=== PATIENT | male | born 1960 | race Caucasian/White ===

== ENCOUNTER 2020-02-29 12:00 | Inpatient (IN) | payer MEDICARE, MEDICAID, SELFPAY ==
[2020-02-29] VITALS (29 sets, daily range): BP systolic 104–142; BP diastolic 78–107; PULSE 76–130; RESP 16–32; TEMP 36.3–36.5; O2SAT 85–98; BMI 25.4
--- NOTE | ~2020-02-29 | US_ITS ---
EXAMINATION: US renal BI EXAM DATE: 03/01/2020 11:45 INDICATION: TECHNIQUE: Multiple grayscale and Doppler images of the kidneys were obtained (by a technologist who performed the scan) and subsequently reviewed. There is no prior study for comparison. FINDINGS: Right kidney: There is normal contour and echogenicity. It measures 8.8 x 4.6 x 4.1 centimeters. Th ere are no focal renal lesions identified. There is no hydronephrosis. Left kidney: There is normal contour and echogenicity. It measures 9.3 x 4.5 x 4.7 centimeters. Ther e is a 1 cm cyst. There is no hydronephrosis. Bladder unremarkable. IMPRESSION: 1. Sonographically unremarkable kidneys. Reviewed, dictated and finalized at location A.
--- NOTE | ~2020-02-29 | XR_ITS ---
EXAMINATION: XR chest 1V portable EXAM DATE: 03/03/2020 05:47 INDICATION: CHF, pneumonia. TECHNIQUE: Portable AP frontal chest x-ray was obtained. Comparison is made to prior examination from 02/29/2020. FINDINGS: There is prominent soft tissue density in the left suprahilar region, could be dilated pulm onary artery but hilar lymphadenopathy is not excludable; recommend chest CT, with contrast if GFR al lows. There is moderate chronic hyperinflation. There is mild cardiomegaly. Pulmonary vascular congestion. Small pleural effusions, adjacent subsegmental atelectasis. No dense confluent consolidation. There i s no pneumothorax suspected. There are mild bony degenerative changes. IMPRESSION: 1. Persistent congestive changes, small pleural effusions. Adjacent subsegmental atelectasis. 2. Prominent left suprahilar soft tissue density, dilated pulmonary artery versus lymphadenopathy; r ecommend chest CT for further evaluation. 3. Pneumonia not excludable. Reviewed, dictated and finalized at location A. IMPRESSION: 1. Persistent congestive changes, small pleural effusions. Adjacent subsegment al atelectasis. 2. Prominent left suprahilar soft tissue density, dilated pulmonary artery [place] lymphadenopathy; recommend chest CT for further evaluation. 3. Pneumonia not excludable.
--- NOTE | ~2020-02-29 | US_ITS ---
EXAMINATION: US venous doppler [facility] DATE: 02/29/2020 15:09 INDICATION: Lower limb swelling TECHNIQUE: Grayscale ultrasound images without and with compression and Doppler ultrasound images of the bilateral lower extremity veins were obtained. COMPARISON: None. FINDINGS: Occlusive appearing noncompressible deep venous spondylosis in both of the paired posterior tibial ve ins at the right calf. The visualized portions of right common femoral vein, profunda (deep) femoral vein, femoral vein, popliteal vein, peroneal veins, gastrocnemius vein, lesser saphenous vein and gre ater saphenous vein outflow are patent. The visualized portions of left common femoral vein, profunda femoral vein, femoral vein, popliteal v ein, posterior tibial veins, peroneal veins, gastrocnemius vein, lesser saphenous vein and greater sa phenous vein outflow are patent. Incidentally noted is reflux of at least 3 second duration at the le ft popliteal and peroneal veins. IMPRESSION: 1. [id number] deep venous thrombosis in the paired posterior tibial veins at the right calf. No left-sided deep venous thrombosis. Dr. Rice discussed these findings with Dr. Wilson at 3:15 PM. 2. Reflux of at least 3 second duration at the left popliteal and peroneal veins. Reviewed, dictated and finalized at location A. IMPRESSION: 1. [id number]-[id number]-[id number] deep venous thrombosis in the paired posterior tibial veins at the right calf. No left-sided deep venous thrombosis. Dr. Rice discussed these findings with Dr. iWlson at 3:15 PM. 2. Reflux of at least 3 second duration at the left popliteal and peroneal vein s.
--- NOTE | ~2020-02-29 | CT_ITS ---
EXAMINATION: CT abdomen pelvis w con DATE: 02/29/2020 13:25 INDICATION: Abdominal pain TECHNIQUE: Computed tomography (CT) of the abdomen and pelvis was performed with 100 mL Omnipaque-350 intravenous contrast. Automated exposure control and iterative reconstruction technique were employe d. The dose-length product was 360.70 mGy-cm. COMPARISON: None FINDINGS: Small bilateral posteriorly layering pleural effusions with mild dependent atelectasis in the bilater al lower lobes and additional discoid atelectasis in the anterior right middle lobe. Mild smooth sept al line thickening at the lung bases consistent with mild pulmonary edema. No pneumonia. Calcified le ft lower lobe nodule consistent with old granulomatous disease. Mild cardiomegaly. Reflux of contrast into the superior vena cava extending caudally to the right common iliac vein consistent with tricus pid regurgitation. Atherosclerotic coronary artery calcification. No pericardial effusion. Small amou nt of ascites scattered throughout the abdomen and pelvis. Nonspecific mild wall thickening of the ga llbladder. Normal caliber common bile duct measuring 4 mm in maximal diameter with no evident obstruc ting stone or mass. Liver is unremarkable with no intrahepatic biliary ductal dilation. Splenic calci fications consistent with old granulomatous disease. Pancreas, bilateral adrenal glands and right kid doreen are normal. A couple small left renal cysts the larger measuring 11 mm in maximal diameter. No hy dronephrosis. No abnormal bowel wall thickening or obstruction. Normal appendix. Bladder is normal. N o abscess or free intraperitoneal gas. No pathologically enlarged abdominal or pelvic lymphadenopathy . There is calcified atherosclerosis of the aorta and many of the other arteries. Chronic mild anteri or wedging at T10-T12. Mild lumbar and lower thoracic spondylosis. IMPRESSION: 1. Congestive heart failure with cardiomegaly, mild pulmonary edema, small bilateral pleural effusion s and small amount of ascites. 2. Diffuse mild gallbladder wall thickening. This could be related to congestive heart failure, liver disease or acute cholecystitis. Correlate clinically for Ragsdale's and and if clinically indicated co uld consider either ultrasound or HIDA scan for further evaluation. Reviewed, dictated and finalized at location A. IMPRESSION: 1. Congestive heart failure with cardiomegaly, mild pulmonary edema, small bila teral pleural effusions and small amount of ascites. 2. Diffuse mild gallbladder wall thickening. This could be related to congestiv e heart failure, liver disease or acute cholecystitis. Correlate clinically for Ragsdale's and and if clinically indicated could consider either ultrasound or H DONNY scan for further evaluation.
--- NOTE | ~2020-02-29 | XR_ITS ---
EXAMINATION: XR chest 2V DATE: 02/29/2020 13:07 INDICATION: Leg swelling. TECHNIQUE: Frontal and lateral views of the chest were obtained. COMPARISON: Chest 2 views 08/01/2007 FINDINGS: There are small pleural effusions. Karel B-lines are noted, consistent with mild pulmonary edema. There are airspace opacities at the lung bases, likely atelectasis. No pneumothorax. The hear t size is normal. IMPRESSION: 1. Mild pulmonary edema. 2. Small pleural effusions. Reviewed, dictated and finalized at location B.
--- NOTE | ~2020-02-29 | US_ITS ---
EXAMINATION: US right upper quadrant DATE: 02/29/2020 15:08 INDICATION: Abdominal pain. TECHNIQUE: Multiple grayscale and Doppler ultrasound images of the abdomen were obtained. COMPARISON: CT abdomen and pelvis 02/29/2020 FINDINGS: The visualized portions of the head, body, and tail of the pancreas are normal. The liver d emonstrates surface nodularity, consistent with cirrhosis. There is normal flow in main portal vein. The gallbladder is normal in size. No gallstones. Gallbladder wall thickening is likely secondary to chronic liver disease. The common duct is normal and measures 4 mm. IMPRESSION: 1. Cirrhosis of the liver. Reviewed, dictated and finalized at location B. IMPRESSION: 1. Cirrhosis of the liver.
--- NOTE | 2020-02-29 12:29 | ECG_ITS ---
Measurements Intervals [place] Rate: 111 P: 75 PA: 156 QRS: -67 QRSD: 102 T: 88 QT: 328 QTc: 447 Interpretive Statements SINUS TACHYCARDIA INCOMPLETE RIGHT BUNDLE BRANCH BLOCK LEFT ANTERIOR FASCICULAR BLOCK BORDERLINE T WAVE ABNORMALITY- HIGH LATERAL LEADS BASELINE ARTIFACT- I, III, AVL ABNORMAL ECG Electronically Signed On 02-29-2020 15:13:50 CDT by Zurdo Louis D.O.
[2020-02-29 12:43] LABS: Basophils Absolute Auto 0.1 K/mm3 (0.0-0.1); Basophils Percent Auto 0.9 % (0.2-1.2); Eosinophils Absolute Auto 0.1 K/mm3 (0-0.3); Eosinophils Percent Auto 1.1 % (0-4.4); Hematocrit 52.1 % (42.0-52.0); Hemoglobin 17.3 g/dL (14.0-18.0); Immature Granulocyte Absolute 0.01 K/mm3 (0.00-0.031); Immature Granulocyte Percent A 0.1 % (0-0.5); Lymphocytes Absolute Auto 1.15 K/mm3 (0.9-3.2); Lymphocytes Percent Auto 16.4 % (18.3-44.2); Mean Corpuscular HGB Conc 33.2 g/dl (32-36); Mean Corpuscular Hemoglobin 31.9 pg (26-34); Mean Corpuscular Volume 95.9 fl (80-100); Mean Platelet Volume 11.9 fl (7.4-10.4); Monocytes Absolute Auto 0.8 K/mm3 (0.1-0.6); Monocytes Percent Auto 10.7 % (2.6-8.5); Neutrophils Percent Auto 70.8 % (45.5-73.1); Platelet Count Result 153 k/mm3 (150-375); Red Blood Count 5.43 M/mm3 (4.6-6.20); Red Cell Distribution Width 14.8 % (11.5-14.5)
--- NOTE | 2020-02-29 12:46 | ED.GENADULT ---
HPI - General Adult General Chief complaint: Unspecified Stated complaint: lower leg swelling/abd pain Time Seen by Provider: 02/29/20 12:15 Source: patient History of Present Illness HPI narrative: Patient is a 59 y/o male complaining of severe bilateral leg swelling for 1 to 1 1/2 weeks. He states that there is no alleviating or exacerbating factor. He also has some intermittent right sided abdominal pain, but has no abdominal pain at this time. He denies any leg pain, chest pain, SOB, vomiting or diarrhea. Related Data Home Medications Medication Instructions Recorded Confirmed No Home Medications 02/29/20 Allergies Allergy/AdvReac Type Severity Reaction Status Date / Time Penicillins Allergy Rash Verified 02/29/20 12:17 Review of Systems Constitutional: Constitutional: Denies chills, Denies fever(s), Denies headache(s) and Denies weakness Eyes: Eyes: Denies blurry vision ENT: Denies headache(s) and Denies neck pain Cardiovascular: Cardiovascular: Denies chest pain, Reports leg edema and Denies dyspnea Respiratory: Respiratory: Denies cough and Denies dyspnea Gastrointestinal: Gastrointestinal: Reports abdominal pain, Denies diarrhea, Denies nausea and Denies vomiting Genitourinary: Genitourinary: Denies hematuria and Denies dysuria Musculoskeletal: Musculoskeletal: Denies back pain and Denies neck pain Neurologic: Denies headache(s) and Denies weakness [facility] Social History Social History (Updated 02/29/20 @ 15:11 by Luda Rasmussen PA-C) Social History: Surrogate decision maker: Code status: Additional living arrangements comments: Lives in [place]. Additional occupation/education comments: Disabled. Exam Const: General: no acute distress and well developed Orientation/consciousness: oriented to person, oriented to place, oriented to time and patient oriented x3 HENMT: Head: normocephalic Ears: external ears normal General nose exam: Normal external nose present Eyes: General: appearance normal, both eyes and all related structures Conjunctivae: conjunctivae normal Neck: Neck: normal visual inspection and full ROM Chest: Chest palpation & inspection: normal inspection of the chest and no tenderness Resp: Effort & Inspection: normal respiratory effort Auscultation: clear to auscultation bilaterally Cardio: Rate: regular rate and tachycardic GI: GI Palp: No abdominal tenderness and Yes Soft to palpation Skin: General skin exam: normal color and turgor normal Neuro: General: oriented to person, oriented to place, oriented to time and patient oriented x3 Cognition (Neuro): normal cognition Extrem: General: full ROM and edema bilateral Psych: Appearance: grossly normal Mental Status: mental status grossly normal Affect: normal affect Course Consultations Consultation #1: Discussed with AVINASH Lares, who agrees to admit to Dr. Charles. Date: 02/29/20 Time: 14:21 Vital Signs Vital signs: Vital Signs Temperature 36.3 C L 02/29/20 12:04 Pulse Rate 120 H 02/29/20 12:04 Respiratory Rate 16 02/29/20 12:04 Blood Pressure 131/91 H 02/29/20 12:04 Pulse Oximetry 98 02/29/20 12:04 Temperature 36.3 C L 02/29/20 12:04 Pulse Rate 114 H 02/29/20 14:16 Respiratory Rate 17 02/29/20 14:16 Blood Pressure 131/102 H 02/29/20 14:15 Pulse Oximetry 97 02/29/20 14:16 Medical Decision Making Vital Signs Vital Signs: Vital Signs Temperature 36.3 C L 02/29/20 12:04 Pulse Rate 120 H 02/29/20 12:04 Respiratory Rate 16 02/29/20 12:04 Blood Pressure 131/91 H 02/29/20 12:04 Pulse Oximetry 98 02/29/20 12:04 Temperature 36.3 C L 02/29/20 12:04 Pulse Rate 114 H 02/29/20 14:16 Respiratory Rate 17 02/29/20 14:16 Blood Pressure 131/102 H 02/29/20 14:15 Pulse Oximetry 97 02/29/20 14:16 Lab Data Result diagrams: 02/29/20 12:36 02/29/20 12:36 Labs: Lab Results 02/29/20
[2020-02-29 12:54] LABS: Alanine Aminotransferase 39 U/L (4-50); Albumin Level 4.3 g/dL (3.5-5.1); Alkaline Phosphatase 169 U/L (38-126); Anion Gap 11 mmol/L (8-16); Aspartate Amino Transferase 49 U/L (17-59); Bilirubin,Total 2.3 mg/dL (0.2-1.3); Blood Urea Nitrogen 23 mg/dL (9-20); Calcium 9.4 mg/dL (8.4-10.2); Carbon Dioxide 25 mmol/L (22-30); Chloride 106 mmol/L (98-107); Estimated CRCL calculation 43 ml/min; Estimated Glomerular Filt Rate 52; Glucose 105 mg/dL (75-110); Potassium 4.3 mmol/L (3.4-5.0); Sodium 142 mmol/L (137-145)
[2020-02-29 12:57] LABS: INR 1.2; Prothrombin Time 14.8 Seconds (11.1-14.7)
[2020-02-29 12:59] LABS: Partial Thromboplastin Time 28.2 SECONDS (22.3-36.8)
[2020-02-29 13:02] LABS: NT Pro B Type Natriuretic Pept 12000 PG/ML (5-100)
[2020-02-29 14:00] LABS: Add Urine Microscopic? YES; Appearance Urine Clear (Clear); Bilirubin Urine Negative (Negative); Blood Urine Negative (Negative); Color Urine Yellow (Yellow); Glucose Urine UA Negative (Negative); Ketones Urine Negative (Negative); Leukocyte Esterase Ur Negative LEU/UL (Negative); Mucus Urine Rare /lpf; Nitrate Urine Negative (Negative); Protein Urine 2+ mg/dL (Negative); Specific Grav Ur 1.018 (1.001-1.035); WBC Urine 0-3 /hpf
[2020-02-29 14:11] LABS: Troponin I 0.031 ng/mL (0.000-0.034)
[2020-02-29] MEDS: FUROSEMIDE INJ 40 MG/4 ML VIAL IV PUSH (15:04)
--- NOTE | 2020-02-29 16:05 | PM.IMHP ---
H&P: HPI History of Present Illness Date/Time: 02/29/20 16:00 Chief complaint: Fatigue and lower extremity edema. Narrative: Francis Perez is a 59-year-old male with no known medical history (he has not seen a physician for decades) who presented to the emergency department earlier today with complaints of fatigue. He has mild intellectual disability and lives at home with his mother Charlene, who provides additional information with the patient's permission. Approximately two and a half weeks ago while outside mowing the lawn, he developed midsternal chest discomfort like somebody put a fist in there with drenching sweats, dizziness, and shortness of breath. The symptoms lasted for about 10 minutes before resolving, and they have not recurred. Since that time he has been very fatigued with a poor appetite. Mom has noticed lower extremity edema within the last week and a half in addition to the appearance of shortness of breath with day-to-day activity, which is unusual as he is typically quite active. At the time my evaluation he does not have any specific complaints. he denies fever, chills, sweats, orthopnea, PND, vomiting, abdominal pain, diarrhea, dysuria, and change in urine output. He has no known history of thyroid disease, coronary artery disease, congestive heart failure, sleep apnea, liver disease, or DVT. He is on no medications at home and does not use alcohol. Review of Systems Review of Systems: Narrative: Twelve systems were reviewed with pertinent positives and negatives as per HPI. Occasional, mild rhinorrhea. He rarely has a cough. No recent travel. No sick contacts or exposure to those positive for COVID-19 to his knowledge. His appetite has been poor but he has not had nausea or vomiting. No anosmia or dysgeusia. No known history of liver or gallbladder disease. No history of hepatitis or concerns for exposure to such. He denies jaundice and pruritus. Weight has remained stable. Except as documented, all other systems were reviewed and are negative. [facility] Past Medical History Medical History (Updated 02/29/20 @ 17:19 by Luda Rasmussen PA-C) Cirrhosis of liver (~02/2020) Congestive heart failure (~02/2020) Deep vein thrombosis (DVT) of distal vein of right lower extremity (~02/29/20) Intellectual disability Tobacco dependence Surgical History Surgical History (Updated 02/29/20 @ 17:05 by Luda Rasmussen PA-C) History of foot surgery History of left inguinal hernia repair Bilateral foot surgery for what sounds like bone spurs. Family History Family History (Updated 02/29/20 @ 17:06 by Luda Rasmussen PA-C) Mother Congestive heart failure Father Cirrhosis of liver Father was an alcoholic. Social History Social History (Updated 02/29/20 @ 17:07 by Luda Rasmussen PA-C) Social History: Surrogate decision maker: Charlene Grider, mother. Code status: Full code. Smoking packs per day: 1 Smoking cigarettes per day: 20.0 Years smoked: 50 Smoking pack-years: 50.00 Smoking status: Current every day smoker Additional smoking assessment comments: Patient began smoking at the age of 9. Alcohol intake: never Substance use: never Additional living arrangements comments: Lives in [place] with his mother and dog, a pug. He has a grown son. Additional occupation/education comments: Disabled due to intellectual disability. Spiritual care concerns: No Meds Home Medications and Allergies Home Medications Medication Instructions Recorded Confirmed Type No Home Medications 02/29/20 History Allergies Allergy/AdvReac Type Severity Reaction Status Date / Time Penicillins Allergy Rash Verified 02/29/20 12:17 Vital Signs Vital Signs - 24 hr 02/29/20 12:04 02/29/20 12:15 02/29/20 12:16 Temperature 97.3 F L Pulse Rate 120 H 130 H Respiratory Rate 16 17 Blood Pressure 131/91 H 142/107 H Pulse Oximetry 98 85 L
--- NOTE | 2020-02-29 16:06 | PC.NURSE ---
This patient, Francis Perez, was admitted to IMU Room 201-01. Patient/family oriented to hospital policies and general routines including ID bracelet, bed and alarms, visiting hours, pain management, procedures, bathroom and other care routines, personal items, smoking policy, room service/diet, and visiting hours. Valuables list has been completed. Information on how to activate the Rapid Response Team has been discussed. Patient/Family are encouraged to report perceived risks to care and to ask questions if they do not understand what they are told or what they should do.
[2020-02-29 16:08] LABS: Troponin I 0.026 ng/mL (0.000-0.034)
[2020-02-29 16:36] LABS: Hepatitis B Surface Antigen Negative (Negative)
[2020-02-29 16:41] LABS: HAV RESULT Negative (Negative); Hepatitis B Core IgM Result Negative (Negative)
[2020-02-29 16:53] LABS: Hepatitis C Virus Antibody Negative (Negative)
[2020-02-29] MEDS: ENOXAPARIN 80 MG/0.8 ML SYRINGE 70 MG SUB-Q (17:54)
[2020-02-29] MEDS: lisinopriL 10 MG TABLET PO (18:36)
[2020-02-29] MEDS: carvediloL 6.25 MG TABLET PO (18:37)
[2020-02-29 18:51] LABS: Creatine Kinase 164 U/L (55-170)
[2020-02-29 19:05] LABS: Troponin I 0.029 ng/mL (0.000-0.034)
[2020-03-01] VITALS (16 sets, daily range): BP systolic 97–111; BP diastolic 67–81; PULSE 67–108; RESP 18–20; TEMP 36.3–36.7; O2SAT 95–99
[2020-03-01] MEDS: ENOXAPARIN 80 MG/0.8 ML SYRINGE 70 MG SUB-Q ×2 (05:36→17:38)
--- NOTE | 2020-03-01 06:00 | ECHO_ITS ---
Patient Info Name: Francis Perez Age: 59 years : 1960 Gender: Male Ht: 65 in Wt: 153 lbs BSA: 1.80 m2 HR: 104 bpm BP: 111 / 79 mmHg Heart Rhythm: Tachycardia Technical Quality: Good Exam Date: 03/01/2020 9:14 AM Exam Location: [facility] Patient Status: Inpatient Admit Date: 02/29/2020 Staff Ordering Physician: Rahel Wilson MD Oil Expeller Operator: Nikko Curran RDCS Attending Provider: Andrey Charles MD Referring Physician: Steve CHILDERS; Exam Type: CA echo doppler color flow Study Info Indications I50.20 - Unspecified systolic (congestive) heart failure Complete two-dimensional, color flow and Doppler transthoracic echocardiogram is performed. History/Risk Factors CHF; edema, cirrhosis, cardiomegaly, edema. Summary 1. Mild LV enlargement, normal wall thickness; severe LV systolic dysfunction, ejection fraction 10-15%; grade 3/4 diastolic dysfunction with elevated left heart pressures. RV enlargement with hypokinesis. Normal mitral valve structure, trivial MR. Aortic valve appears mildly calcified, mild aortic stenosis, EMILY 1.8 cm2, mild aortic regurgitation. Moderate TR, moderate pulmonary hypertension, RVSP 58 mmHg, mild pulmonic regurgitation. Dilated IVC with less than 50% collapse consistent with elevated right atrial pressure. Left Ventricle Left ventricular chamber dimension is mildly enlarged. Left ventricular systolic function is severely reduced, estimated at <15%. There is no increased left ventricular wall thickness. Left ventricular septal wall motion is normal. The left ventricular diastolic function is grade IV diastolic dysfunction. E/e' 20.4 is elevated. Right Ventricle Right ventricular chamber dimension is mildly enlarged. Right ventricular systolic function is reduced. Left Atria Left atrial chamber dimension is normal. Right Atria Right atrial chamber dimension is normal. Aortic Valve There is no aortic valve sclerosis. There is mild aortic valve stenosis with a peak velocity of 113 cm/s, mean gradient of 3 mmHg, and aortic valve area of 1.8 cm2. There is mild aortic valve regurgitation. There is mild aortic valve calcification. Pulmonic Valve The pulmonic valve is normal. There is mild pulmonic regurgitation. Mitral Valve The mitral valve has normal leaflets. There is trace mitral valve regurgitation. Tricuspid Valve The tricuspid valve leaflets are normal. There is moderate tricuspid valve regurgitation. Moderate pulmonary hypertension, estimated pulmonary arterial systolic pressure is 58 mmHg. Pericardium/Pleural The pericardium appears normal. There is no pericardial effusion. Inferior Vena Cava Dilated inferior vena cava with <50% collapse upon inspiration consistent with elevated right atrial pressure, 15 mmHg. Aorta The aortic root size at the sinus of Valsalva is normal. The prox ascending aorta size is normal. Left Ventricular Outflow Tract Name Value Normal LVOT 2D LVOT Diameter 2.0 cm LVOT Doppler LVOT Peak Gradient 2 mmHg LVOT Mean Gradient 1 mmHg LVOT V
[2020-03-01 06:38] LABS: Hemoglobin 16.7 g/dL (14.0-18.0); Immature Platelet Fraction Pct 9.7 % (0.9-11.2); Mean Corpuscular HGB Conc 32.7 g/dl (32-36); Mean Corpuscular Hemoglobin 31.6 pg (26-34); Mean Corpuscular Volume 96.6 fl (80-100); Mean Platelet Volume 11.9 fl (7.4-10.4); Platelet Count Result 140 k/mm3 (150-375); Red Blood Count 5.28 M/mm3 (4.6-6.20); Red Cell Distribution Width 14.6 % (11.5-14.5); White Blood Count 6.3 K/mm3 (4.5-10.0)
[2020-03-01 06:54] LABS: Alanine Aminotransferase 37 U/L (4-50); Alkaline Phosphatase 146 U/L (38-126); Anion Gap 8 mmol/L (8-16); Aspartate Amino Transferase 43 U/L (17-59); Bilirubin,Total 1.9 mg/dL (0.2-1.3); Blood Urea Nitrogen 24 mg/dL (9-20); Carbon Dioxide 30 mmol/L (22-30); Chloride 103 mmol/L (98-107); Estimated CRCL calculation 41 ml/min; Estimated Glomerular Filt Rate 48; Glucose 97 mg/dL (75-110); Magnesium 1.6 mg/dL (1.6-2.3); Phosphorus 4.4 mg/dL (2.5-4.5); Potassium 4.2 mmol/L (3.4-5.0); Sodium 141 mmol/L (137-145)
[2020-03-01 07:03] LABS: INR 1.4; Prothrombin Time 16.4 Seconds (11.1-14.7)
--- NOTE | 2020-03-01 07:45 | PM.IMPN ---
Progress Note: A&P Assessment and Plan (1) New onset of congestive heart failure: Code(s): I50.9 - Heart failure, unspecified Status: Acute Assessment and Plan: Cautious diuresis with close monitoring of volume status and renal function, he was - 320 ml. Echocardiogram still pending. Given new onset congestive heart failure will consult cardiology. Still having significant peripheral edema and rales on exam. (2) Renal failure: Code(s): N19 - Unspecified kidney failure Status: Acute Assessment and Plan: He may very well have underlying chronic renal disease. Will obtain renal ultrasound pending, he also has proteinuria. (3) Deep vein thrombosis of distal vein of right lower extremity: Code(s): I82.4Z1 - Acute embolism and thrombosis of unspecified deep veins of right distal lower extremity Status: Acute Assessment and Plan: He has been started on Lovenox 1 milligram/kilogram. He is saturating above 95 % on room air has no chest pain and he is hemodynamically stable , given that the management is not going to change based on whether or not he has a PE I will not order a ct of the chest. Reflux of at least 3 seconds duration is was noted at the left popliteal and peroneal veins on venous Doppler ultrasound indicating chronic venous insufficiency. (4) Thickening of wall of gallbladder: Code(s): K82.8 - Other specified diseases of gallbladder Status: Acute Assessment and Plan: [place] to be due to chronic liver disease; he has no symptoms to suggest cholecystitis. (5) Elevated blood pressure reading: Code(s): R03.0 - Elevated blood-pressure reading, without diagnosis of hypertension Status: Acute Assessment and Plan: Blood pressure is stable now. Monitor blood pressures closely while diuresing. (6) Tachycardia: Code(s): R00.0 - Tachycardia, unspecified Status: Acute Assessment and Plan: His tachycardia is under better control. (7) Cirrhosis of liver: Onset Date: ~02/2020 Code(s): K74.60 - Unspecified cirrhosis of liver Status: Acute Assessment and Plan: Etiology of which is not clear at this time. He does not consume alcohol. His father had cirrhosis but was a heavy drinker. There is no mention of fatty liver on ultrasound. Hepatitis panel was negative. Given findings of congestive heart failure, I suppose it could be related to that. consult GI for further workup and to rule out less common causes. (8) Tobacco dependence: Code(s): F17.200 - Nicotine dependence, unspecified, uncomplicated Status: Acute Assessment and Plan: Smoking cessation is imperative and was discussed although I am not certain he is motivated. Subjective Date/time seen: He has no specific complains this morning, no chest pain or SOB. Still has significant edema and rhonchi, rales on exam. 03/01/20 07:45 Review of Systems Review of Systems: All systems reviewed & are unremarkable except as noted in HPI and below Exam Const: General: no acute distress Neck: Neck: supple and no JVD Resp: Effort & Inspection: normal respiratory effort Auscultation: rales, rhonchi and wheezes Cardio: Rate: regular rate Rhythm: regular rhythm Other: No bradycardia or tachycardia. GI: Auscultation: normal bowel sounds Skin: General skin exam: no rashes or lesions noted Neuro: Speech: normal speech Motor exam (neuro)
--- NOTE | 2020-03-01 08:23 | PM.CNCAR ---
Assessment and Plan Assessment and plan (1) CHF (congestive heart failure): Qualifiers: Heart failure chronicity: acute on chronic Heart failure type: unspecified Qualified Code(s): I50.9 - Heart failure, unspecified Code(s): I50.9 - Heart failure, unspecified Status: Acute Assessment and Plan: 59-year-old male with some level of intellectual disability, no known prior cardiac history admitted to the hospital with 7-10 day history of fatigue, and episode of chest discomfort associated with shortness of breath and diaphoresis, and lower extremity swelling. Patient is found to have right lower extremity DVT, and his imaging shows liver cirrhosis. His EKG shows sinus tachycardia, incomplete right bundle-branch block, left anterior fascicular block and nonspecific T-wave abnormality. Serial troponins are negative, anti proBNP is elevated. Check echocardiogram with Doppler to assess LV function and rule out major structural heart disease. Continue gentle diuresis with close monitoring of patient's renal function and electrolytes. (2) Deep vein thrombosis (DVT) of distal vein of right lower extremity: Onset Date: ~02/29/20 Qualifiers: Chronicity: acute Qualified Code(s): I82.4Z1 - Acute embolism and thrombosis of unspecified deep veins of right distal lower extremity Code(s): I82.4Z1 - Acute embolism and thrombosis of unspecified deep veins of right distal lower extremity Status: Acute Assessment and Plan: Anticoagulation with low-molecular weight heparin. Patient has renal insufficiency, therefore, CT scan of the chest could not be performed to rule out PE. Consider V/Q scan to check for PE. Management as per primary team. (3) Cirrhosis of liver: Onset Date: ~02/2020 Code(s): K74.60 - Unspecified cirrhosis of liver Status: Acute Assessment and Plan: Management as per primary team. Gastroenterology evaluation. It needs to be determined if patient's liver cirrhosis is a primary problem or secondary to underlying cardiac condition. (4) Tobacco abuse: Code(s): Z72.0 - Tobacco use Status: Acute Assessment and Plan: Smoking cessation counseling was done History of Present Illness History of Present Illness Consult date/time: 03/01/20 08:23 Date of consult: 03/01/2020 Reason for consult:CHF Requesting physician:FRANKLYN Rasmussen Chief complaint: Fatigue, leg swelling HPI: 59-year-old male with no known prior cardiac history . Patient is reported to have some level of intellectual disability. He lives with his mother. Patient was brought to [facility] on 02/29/2020 with complaints of generalized fatigue. He reports that about a week to ten days ago ago, he had some chest discomfort, although he is not able to describe his symptoms fully. He reports that his symptoms were associated sweats, dizziness, and shortness of breath. He has also noticed swelling in the bilateral lower extremities. He denies any recent trauma, denies any recent long distance travel. There is no known prior cardiac history. Patient's EKG on the personal evaluation showed sinus tachycardia, heart rate 101 beats per minute, incomplete right bundle-branch block, left anterior fascicular block, nonspecific T-wave abnormality. Serial troponins [place] [address]. Chest x-ray showed mild pulmonary vascular congestion and small pleural effusions. CT scan of the abdomen and pelvis showed Congestive heart failure with cardiomegaly, mild pulmonary edema, small bilateral pleural effusions and small amount of ascites; diffuse mild gallbladder wall thickening which could be related to congestive heart failure, liver disease or acute cholecystitis. venous duplex showed posterior tibial veins at the right calf; no DVT left leg. Ultrasound showed liver surface nodularity, consistent with cirrhosis. Patient has been
[2020-03-01] MEDS: FUROSEMIDE INJ 40 MG/4 ML VIAL 20 MG IV PUSH ×2 (08:46→17:37)
--- NOTE | 2020-03-01 15:15 | WPDGICN ---
Assessment and Plan Assessment and plan (1) Cirrhosis of liver: Onset Date: ~02/2020 Code(s): K74.60 - Unspecified cirrhosis of liver Status: Acute Assessment and Plan: incidental finding by imaging, also noted to be on heart failure and wonder if could have congestive hepatopathy will get blood work to rule out other chronic liver conditions (AIH, hemochromatosis, etc), could be idiopathic (2) CHF (congestive heart failure): Qualifiers: Heart failure chronicity: acute on chronic Heart failure type: unspecified Qualified Code(s): I50.9 - Heart failure, unspecified Code(s): I50.9 - Heart failure, unspecified Status: Acute Assessment and Plan: he is also being evaluated by cardiology and diuresed (3) Deep vein thrombosis (DVT) of distal vein of right lower extremity: Onset Date: ~02/29/20 Qualifiers: Chronicity: acute Qualified Code(s): I82.4Z1 - Acute embolism and thrombosis of unspecified deep veins of right distal lower extremity Code(s): I82.4Z1 - Acute embolism and thrombosis of unspecified deep veins of right distal lower extremity Status: Acute Assessment and Plan: started on blood thinners (4) Renal failure: Code(s): N19 - Unspecified kidney failure Status: Acute Assessment and Plan: mild elevated creatinine, by primary (5) Tobacco abuse: Code(s): Z72.0 - Tobacco use Status: Acute (6) Colon cancer screening: Code(s): Z12.11 - Encounter for screening for malignant neoplasm of colon Status: Acute Assessment and Plan: he says that had stool card 2-3 years ago and he does not want colonoscopy as outpatient, at least for now GI Consult Note Consult date/time: 03/01/20 15:15 Reason for consult: cirrhosis HPI: Francis Perez is a 59 year old male with no known medical history whoever has not seen a doctor for quite some time, smoker since 12 yo admitted with more shortness of breath on exertion and leg edema last several days, mother is at bedside and mentioned that he was unable to complete mowing the lawn this summer, history is obtained also from mother as patient has mild intellectual disability. Imaging showed that he has heart failure, also cirrhosis (unknown history of either), denies alcohol use. Also diagnosed with DVT in right leg and started on blood thinners. INR 1.2, creat 1.4, TB 2, transaminases 30-40, albumin 4.3, BN 12k. Also evaluated by cardiology. Hepatitis panel negative. He is comfortable now. Review of Systems Constitutional: Constitutional: Denies chills and Denies headache(s) Eyes: Eyes: Denies blurry vision ENT: Reports Normal hearing present, Denies headache(s) and Denies neck pain Cardiovascular: Cardiovascular: Reports leg edema and Denies dyspnea Respiratory: Respiratory: Reports dyspnea on exertion Gastrointestinal: Gastrointestinal: Reports no additional gastrointestinal complaints Genitourinary: Genitourinary: Denies dysuria Musculoskeletal: Musculoskeletal: Denies neck pain Integumentary/Breasts: Skin/Breast: Denies dry skin Neurologic: Reports Normal hearing present, Denies headache(s) and Denies weakness Psychiatric: Psychiatric: Denies anxiety Endocrine: Endocrine: Denies change in body appearance Hematologic/Lymphatic: Hematologic/Lymphatic: Denies easy bleeding Allergic/Immunologic: Allergic/Immunologic: Denies urticaria PMFSH Past Medical History Medical History Cirrhosis of liver (~02/2020) Congestive heart failure (~02/2020) Deep vein thrombosis (DVT) of distal vein of right lower extremity (~02/29/20) Intellectual disability Tobacco dependence Surgical History Surgical History History of foot surgery History of left inguinal hernia repair Bilateral foot surgery for what sounds like bone spurs. Family Histor
[2020-03-01] MEDS: MAGNESIUM SULF 1 GM/D5W 100 ML 1 GM/100 ML BAG IVPB (19:52)
[2020-03-01] MEDS: carvediloL 3.125 MG TABLET PO (19:52)
[2020-03-02] VITALS (17 sets, daily range): BP systolic 96–127; BP diastolic 67–95; PULSE 55–103; RESP 18–20; TEMP 36.4–36.8; O2SAT 95–99
[2020-03-02 05:00] LABS: Anion Gap 9 mmol/L (8-16); Blood Urea Nitrogen 34 mg/dL (9-20); Carbon Dioxide 30 mmol/L (22-30); Chloride 101 mmol/L (98-107); Estimated CRCL calculation 36 ml/min; Estimated Glomerular Filt Rate 41; Glucose 98 mg/dL (75-110); Potassium 4.3 mmol/L (3.4-5.0); Sodium 140 mmol/L (137-145)
[2020-03-02 05:24] LABS: Iron 86 ug/dL (49-181)
[2020-03-02 05:33] LABS: Percent Iron Saturation 21 % (20-50)
[2020-03-02] MEDS: ENOXAPARIN 80 MG/0.8 ML SYRINGE 70 MG SUB-Q (05:53)
[2020-03-02] MEDS: carvediloL 3.125 MG TABLET PO ×2 (09:16→20:16)
[2020-03-02] MEDS: FUROSEMIDE INJ 40 MG/4 ML VIAL 20 MG IV PUSH (09:17)
--- NOTE | 2020-03-02 11:13 | PM.IMPN ---
Progress Note: A&P Assessment and Plan (1) New onset of congestive heart failure: Code(s): I50.9 - Heart failure, unspecified Status: Acute Assessment and Plan: Echocardiogram showed combined diastolic and systolic dysfunction with an EF 10-15%, no wall motion abnormalities, mild aortic regurgitation and stenosis. On carvedilol already and tolerating it well, we will start him on low dose ISIDORO inhibitor. Still having significant peripheral edema but the exam has improved compared to yesterday's, decrease lasix to 20 mg daily given the worsening renal function and also due to the fact that his breathing has improved. (2) Renal failure: Code(s): N19 - Unspecified kidney failure Status: Acute Assessment and Plan: He may have cardiorenal syndrome , we will have nephrology to see him. Renal US unremarkable, he also has proteinuria. (3) Deep vein thrombosis of distal vein of right lower extremity: Code(s): I82.4Z1 - Acute embolism and thrombosis of unspecified deep veins of right distal lower extremity Status: Acute Assessment and Plan: He has been started on Lovenox 1 milligram/kilogram, we will switch him to eliquis. He is saturating above 95 % on room air has no chest pain and he is hemodynamically stable , given that the management is not going to change based on whether or not he has a PE I will not order a ct of the chest. Reflux of at least 3 seconds duration is was noted at the left popliteal and peroneal veins on venous Doppler ultrasound indicating chronic venous insufficiency. (4) Thickening of wall of gallbladder: Code(s): K82.8 - Other specified diseases of gallbladder Status: Acute Assessment and Plan: [place] to be due to chronic liver disease; he has no symptoms to suggest cholecystitis. (5) Elevated blood pressure reading: Code(s): R03.0 - Elevated blood-pressure reading, without diagnosis of hypertension Status: Acute Assessment and Plan: Blood pressure on the low side now probably due to low EF. Monitor blood pressures closely while diuresing. (6) Tachycardia: Code(s): R00.0 - Tachycardia, unspecified Status: Acute Assessment and Plan: His tachycardia is under better control. (7) Cirrhosis of liver: Onset Date: ~02/2020 Code(s): K74.60 - Unspecified cirrhosis of liver Status: Acute Assessment and Plan: Etiology of which is not clear at this time. Might be related to hepatic congestion given CHF. (8) Tobacco dependence: Code(s): F17.200 - Nicotine dependence, unspecified, uncomplicated Status: Acute Assessment and Plan: Smoking cessation is imperative and was discussed although I am not certain he is motivated. Subjective Date/time seen: Feeling better today, no chest pain or SOB. Anxious to go home but he does not have enough insight to understand his medical conditions. Family at the bedside was updated. 03/02/20 11:13 Review of Systems Review of Systems: All systems reviewed & are unremarkable except as noted in HPI and below Exam Const: General: comfortable and no acute distress Neck: Neck: supple and no JVD Resp: Effort & Inspection: normal respiratory effort Auscultation: crackles and rhonchi Cardio: Rate: regular rate Rhythm: regular rhythm Other: No bradycardia or tachycardia GI: Auscultation: normal bowel sounds Skin: General skin exam: no rashes o
--- NOTE | 2020-03-02 11:35 | PM.PNCARD ---
Progress Note: A&P Assessment and Plan (1) New onset of congestive heart failure: Code(s): I50.9 - Heart failure, unspecified Status: Acute Assessment and Plan: patient appears euvolemic. Agree with changing Lasix to p.o. -- would hold for now pending cath. (2) Cardiomyopathy: Code(s): I42.9 - Cardiomyopathy, unspecified Status: Acute Assessment and Plan: New cardiomyopathy, EF 10-15%. May be familial ( father had stent, both sisters have heart problems, nephew had sudden cardiac age 36 and other family members with heart disease ) discuss treatment of CHF/cardiomyopathy extensively with patient and mother, medication management, hope for improvement, risk of lethal arrhythmias and sudden cardiac . Recommended cardiac catheterization (Cors only to protect kidneys), which the patient is amenable to, tomorrow morning if renal fxn is stable Recommended LifeVest, reviewed in detail. Mother is skeptical that the patient will wear it but pt says he will. Both desire to give it a try if insurance will cover it. Patient is very eager for discharge. Hopefully can be discharged tomorrow afternoon. (3) Nonsustained ventricular tachycardia: Code(s): I47.2 - Ventricular tachycardia Status: Acute Assessment and Plan: PVCs and asymptomatic nonsustained ventricular tachycardia noted. Keep potassium greater than 4.0, monitor magnesium levels as well. Continue beta-gregorio, titrate as outpatient. Life vest (4) Chronic kidney disease: Code(s): N18.9 - Chronic kidney disease, unspecified Status: Acute Assessment and Plan: Hold diuretic for now, IV fluids for cath (5) Cirrhosis: Qualifiers: Ascites presence: unspecified Hepatic cirrhosis type: unspecified hepatic cirrhosis Qualified Code(s): K74.60 - Unspecified cirrhosis of liver Code(s): K74.60 - Unspecified cirrhosis of liver Status: Acute Assessment and Plan: (6) Tobacco dependence: Code(s): F17.200 - Nicotine dependence, unspecified, uncomplicated Status: Acute Assessment and Plan: (7) Deep vein thrombosis (DVT) of distal vein of right lower extremity: Onset Date: ~02/29/20 Qualifiers: Chronicity: acute Qualified Code(s): I82.4Z1 - Acute embolism and thrombosis of unspecified deep veins of right distal lower extremity Code(s): I82.4Z1 - Acute embolism and thrombosis of unspecified deep veins of right distal lower extremity Status: Acute Assessment and Plan: DVT below the knee, Keep on Lovenox until after cath, then switch to Eliquis Subjective Date/time seen: 03/02/20 11:35 Middle-aged male admitted with new onset of CHF, found to have a new cardiomyopathy EF 15%. Also found to have kidney disease, and cirrhosis. History of intellectual disability. Date of service: 03/02/2020 Patient feels well and is eager to go home to his family. Mother at the bedside. Denies shortness of breath, edema has resolved. Echo showed EF 10-15%, mild valve disease. Telemetry: PVCs, 21 beat run of ventricular tachycardia this morning asymptomatic. Apnea link = Normal Review of Systems Constitutional: Constitutional: Reports no additional constitutional complaints ENT: Denies epistaxis Cardiovascular: Cardiovascular: Denies chest pain, Denies pedal edema, Denies lightheadedness and Denies palpitations Respiratory: Respiratory: Denies dyspnea and Denies dyspnea on exertion Gastrointestinal: Gastrointestinal: Denies abdominal pain Genitourin
--- NOTE | 2020-03-02 12:43 | PM.CNNEP ---
Assessment and Plan Assessment and plan (1) Elevated serum creatinine: Code(s): R79.89 - Other specified abnormal findings of blood chemistry Status: Acute (2) Cardiomyopathy: Code(s): I42.9 - Cardiomyopathy, unspecified Status: Acute (3) CHF (congestive heart failure): Qualifiers: Heart failure chronicity: acute on chronic Heart failure type: unspecified Qualified Code(s): I50.9 - Heart failure, unspecified Code(s): I50.9 - Heart failure, unspecified Status: Acute (4) Cirrhosis of liver: Onset Date: ~02/2020 Code(s): K74.60 - Unspecified cirrhosis of liver Status: Acute (5) Renal failure: Code(s): N19 - Unspecified kidney failure Status: Acute Assessment and Plan: . Additional Plan Francis has an elevated creatinine that I suspect probably represents some degree of mild renal insufficiency. Although he has no history prior to this admission, the new findings of systolic and diastolic heart failure particularly with regard to his severe cardiomyopathy make him at risk for cardiorenal syndrome or at least chronic prerenal azotemia given depressed ejection fraction and worsening of his kidney function by the necessity of diuretic therapy. His liver issues may be secondary to his cardiomyopathy or possibly may be a primary issue in of itself which of course also would put him at risk for renal insufficiency particularly given that his liver physiology will predisposed him to decreased effective circulating volume also leading to chronic prerenal azotemia and also worsened by the necessity of diuretic therapy as well. I suppose there is it is also possible he could have some other intrinsic, infiltrative, or inflammatory disorders/disease that is affecting his kidney functions well with the added confounding variables of his cardiac and liver disease making things worse as well. Testing today has shown that his renal ultrasound is unremarkable but his urinalysis is somewhat significant for the fact he does have 2+ protein. For further evaluation of his renal dysfunction, I will check urine electrolytes, urine eosinophils, a random urine to protein creatinine ratio and also check a fairly extensive serological evaluation to ensure we are not missing any type of autoimmune disease or vasculitis that may be playing a role with regard to his renal dysfunction as well. These tests will take a few days to come back and it is not necessary for him to stay in the hospital as he can follow-up with me in the office for further management of his renal insufficiency/suspected chronic kidney disease once he is deemed stable for discharge. Cardiology plans do a cardiac catheterization tomorrow for definitive evaluation of his cardiomyopathy and I assume to assess whether not ischemia / ischemic disease is playing a role with regard to this issue / problem. He will also need a life vest on discharge given the severity of his cardiomyopathy as well. Long and extensive discussion with patient and his mother (> 20 minutes) regarding his multiple medical issues and problems including his kidney dysfunction as this time. I will continue follow with you while the patient remains hospitalized and make further recommendations during his hospital course. Thank you for allowing me to participate in the care this patient. History of Present Illness Reason for Consult Consult date: 03/02/20 Chief Complaint Chief complaint: Fatigue and lower extremity edema. History of Present Illness Narrative: The patient is a 59-year-old Caucasuin male with no significant medical history (but has not had blood work in the last few yeasr and has not seen a physician in decades) who presented to the emergency department with complaints of fatigue. Most of the information I have obtained is from discussion with his mother at bedside as the patient appears to have a mild intellectual disability
[2020-03-02] MEDS: lisinopriL 2.5 MG TABLET PO (12:54)
--- NOTE | 2020-03-02 14:46 | WPDGIPROGNO ---
Progress Note: A&P Assessment and Plan (1) Cirrhosis of liver: Onset Date: ~02/2020 Code(s): K74.60 - Unspecified cirrhosis of liver Status: Acute Assessment and Plan: I wonder if could be congestive hepatopathy from cardiomyopathy (EF 10-15%) but work up for other chronic liver disease in progress. he can follow up with me in office in 2-3 months to discuss findings. (2) CHF (congestive heart failure): Qualifiers: Heart failure chronicity: acute on chronic Heart failure type: unspecified Qualified Code(s): I50.9 - Heart failure, unspecified Code(s): I50.9 - Heart failure, unspecified Status: Acute (3) Cardiomyopathy: Code(s): I42.9 - Cardiomyopathy, unspecified Status: Acute Assessment and Plan: severe cardiomyopathy, cardiology is planning to do cardiac cath tomorrow (4) Chronic kidney disease: Code(s): N18.9 - Chronic kidney disease, unspecified Status: Acute Assessment and Plan: nephrology on board (5) Deep vein thrombosis (DVT) of distal vein of right lower extremity: Onset Date: ~02/29/20 Qualifiers: Chronicity: acute Qualified Code(s): I82.4Z1 - Acute embolism and thrombosis of unspecified deep veins of right distal lower extremity Code(s): I82.4Z1 - Acute embolism and thrombosis of unspecified deep veins of right distal lower extremity Status: Acute Assessment and Plan: on blood thinners Subjective Date/time seen: 03/02/20 14:46 Interval history: ECHO showed EF 10-15%, he is comfortable. Mother is at bedside Review of Systems Review of Systems: All systems reviewed & are unremarkable except as noted in HPI and below Exam Const: General: comfortable and no acute distress HENMT: Mouth: Yes moist mucous membranes Eyes: EOM: EOMs intact bilaterally Neck: Neck: supple Resp: Effort & Inspection: normal respiratory effort Auscultation: clear to auscultation bilaterally Cardio: Rate: regular rate Rhythm: regular rhythm GI: Inspection: non-distended GI Palp: Yes Soft to palpation and No Firmness to palpation present (GI) Auscultation: normal bowel sounds Skin: General skin exam: normal color and no rashes or lesions noted Neuro: Cognition (Neuro): abnormal cognition ( poor insight) Speech: normal speech Motor exam (neuro): Normal motor muscle tone present throughout Extrem: General: no pedal edema Objective Data Vital Signs Vital Signs: Vital Signs - 24 hr 03/01/20 16:00 03/01/20 18:00 03/01/20 19:11 Temperature 97.5 F L 97.3 F L Pulse Rate 107 H 108 H 102 H Respiratory Rate 18 18 Blood Pressure 110/81 106/76 Pulse Oximetry 96 96 03/01/20 19:43 03/01/20 19:52 03/01/20 20:00 Temperature 97.8 F Pulse Rate 106 H 105 H 105 H Respiratory Rate 20 20 Blood Pressure 110/78 Pulse Oximetry 97 97 03/01/20 22:00 03/02/20 00:00 03/02/20 02:00 Temperature 98.0 F Pulse Rate 97 94 96 Respiratory Rate 18 Blood Pressure 103/71 Pulse Oximetry 98 03/02/20 04:00 03/02/20 06:00 03/02/20 08:00 Temperature 97.6 F 97.9 F Pulse Rate 96 96 95 Respiratory Rate 18 20 Blood Pressure 104/77 127/95 H Pulse Oximetry 99 96 03/02/20 09:16 03/02/20 10:00 03/02/20 11:58 Temperature 98.2 F Pulse Rate 101 H 101 H 79 Respiratory Rate 18 Blood Pressure 96/72 L Pulse Oximetry 97 Intake/Output Intake/Output: Intake & Output 02/28/20 02/29/20 03/01/20 03/02/20 23:59 23:59 23:59 23:59 Intake Total 480 1170 560 Output Total 550 2300 1600 [facility] -[phone] Meds/Results Medications: Active Medications Generic Name Dose Route Start Last Admin Trade Name Freq PRN Reason Stop Dose Admin Apixaban 5 mg 03/09/20 21:00 Eliquis PO Q12HR ROVERTO Carvedilol 3.125 mg 03/01/20 19:05 03/02/20 09:16 Coreg PO 3.125 mg Q12HR ROVERTO Administration Sodium Chloride 500 mls @ 75 mls/hr 03/02/20 20:00 Normal Ray
--- NOTE | 2020-03-02 17:57 | PC.NURSE ---
Spoke with Ulises from [facility]. He is faxing a form over to [facility] that Dr. Craig will sign and fax back. Ulises informed plan is to discharge tomorrow after cardiac catheterization.
[2020-03-02] MEDS: SODIUM CHLORIDE 0.9% IV 500 ML 75 ML IV CONT (20:16)
[2020-03-03] VITALS (18 sets, daily range): BP systolic 101–135; BP diastolic 62–85; PULSE 86–103; RESP 16–18; TEMP 35.9–36.6; O2SAT 92–99
[2020-03-03 05:23] LABS: Anion Gap 8 mmol/L (8-16); Blood Urea Nitrogen 38 mg/dL (9-20); Calcium 8.4 mg/dL (8.4-10.2); Carbon Dioxide 28 mmol/L (22-30); Chloride 100 mmol/L (98-107); Estimated CRCL calculation 41 ml/min; Estimated Glomerular Filt Rate 48; Glucose 96 mg/dL (75-110); Magnesium 1.6 mg/dL (1.6-2.3); Potassium 4.1 mmol/L (3.4-5.0); Sodium 136 mmol/L (137-145)
--- NOTE | 2020-03-03 06:54 | P.CDI_ITS ---
CDI Query Clarification Request - CHF- new onset has been documented - Echocardiogram showed combined diastolic and systolic dysfunction with an EF 10-15%, no wall motion abnormalities, mild aortic regurgitation and stenosis documented - Coders cannot code type of CHF from echo results Please clarify type of new onset CHF: * Systolic * Diastolic * Combined systolic and diastolic * Unable to determine
[2020-03-03] MEDS: lisinopriL 2.5 MG TABLET PO (08:14)
[2020-03-03] MEDS: carvediloL 3.125 MG TABLET PO (08:14)
--- NOTE | 2020-03-03 08:49 | PM.IMPN ---
Progress Note: A&P Assessment and Plan (1) New onset of congestive heart failure: Code(s): I50.9 - Heart failure, unspecified Status: Acute Assessment and Plan: Combined Systolic and diastolic based on Echo results. Cardiology consulted and appreciate rec. Patient to have cath today; possible discharge from Cardiology standpoint pending cath per note. Echocardiogram showed combined diastolic and systolic dysfunction with an EF 10-15%, no wall motion abnormalities, mild aortic regurgitation and stenosis. On carvedilol already and tolerating it well Cont low dose lisinopril Still having significant peripheral edema but patient has apparent improvement in SOB and edema; will defer diuretics to Cardiology given plan for cath Monitor Patient to be discharged with LifeVest per Cardiology rec Await further rec from Cardiology (2) Renal failure: Code(s): N19 - Unspecified kidney failure Status: Acute Assessment and Plan: Cr 1.50 today; stable. He may have cardiorenal syndrome. Nephrology consulted and appreciate rec. Renal US unremarkable, he also has proteinuria. Monitor kidney function F/u with Nephrology as well Monitor Await rec from Nephrology (3) Deep vein thrombosis of distal vein of right lower extremity: Code(s): I82.4Z1 - Acute embolism and thrombosis of unspecified deep veins of right distal lower extremity Status: Acute Assessment and Plan: He had been started on Lovenox 1 milligram/kilogram, but then switched to eliquis; this has been held given Cath today per Cardiology rec. He is saturating above 95 % on room air has no chest pain and he is hemodynamically stable , given that the management is not going to change based on whether or not he has a PE no CTA of chest ordered. Reflux of at least 3 seconds duration is was noted at the left popliteal and peroneal veins on venous Doppler ultrasound indicating chronic venous insufficiency. Will defer resumption of Eliquis on Cardiology. If resuming tonight, start Eliquis 10 mg BID through morning of 03/10 (7 days), then switch to 5 mg BID thereafter Will need f/u with PCP (4) Thickening of wall of gallbladder: Code(s): K82.8 - Other specified diseases of gallbladder Status: Acute Assessment and Plan: [place] to be due to chronic liver disease; he has no symptoms to suggest cholecystitis. (5) Elevated blood pressure reading: Code(s): R03.0 - Elevated blood-pressure reading, without diagnosis of hypertension Status: Acute Assessment and Plan: Blood pressure on the low side now probably due to low EF. 130s sys this morning, however Monitor blood pressures closely while diuresing. Carvedilol and lisinopril also continues Cardiology following patient. (6) Tachycardia: Code(s): R00.0 - Tachycardia, unspecified Status: Acute Assessment and Plan: His tachycardia is under better control. (7) Cirrhosis of liver: Onset Date: ~02/2020 Code(s): K74.60 - Unspecified cirrhosis of liver Status: Acute Assessment and Plan: Etiology of which is not clear at this time. Dr. Grijalva following and appreciate recommendations. Might be related to hepatic congestion given CHF. F/u with GI in 2-3 months per rec (8) Tobacco dependence: Code(s): F17.200 - Nicotine dependence, unspecified, uncomplicated Status: Acute Assessment and Plan: Smoking cessation is imperative and was discussed again today, although he does not appear motivated
--- NOTE | 2020-03-03 10:08 | WPDMODSED ---
Moderate Sedation Note-Pt Data Patient Data Diagnosis: New CHF and cardiomyopathy, rule out coronary artery disease Present Complaint: shortness of breath and edema secondary to CHF Procedure to be performed/Plan: conscious sedation left heart catheterization Allergies Allergy/AdvReac Type Severity Reaction Status Date / Time Penicillins Allergy Rash Verified 02/29/20 12:17 Home Medications Medication Instructions Recorded Confirmed Type No Home Medications 02/29/20 02/29/20 History Current Medications: Active Medications Apixaban (Eliquis) 5 mg PO Q12HR [facility] Carvedilol (Coreg) 3.125 mg PO Q12HR [facility] Last Admin: 03/03/20 08:14 Dose: 3.125 mg Documented by: Sodium Chloride (Normal Saline Iv) 500 mls @ 75 mls/hr IV CONT .Q6H40M [facility] Last Infusion: 03/03/20 03:23 Dose: Infused Documented by: Lisinopril (Prinivil) 2.5 mg PO QAM [facility] Last Admin: 03/03/20 08:14 Dose: 2.5 mg Documented by: Sedation/Anesthesia: No previous sedation/anesthesia problems (including family history). PENDING SALE TO [facility] Past Medical History Medical History Cardiomyopathy Chronic kidney disease Cirrhosis of liver (~02/2020) Colon cancer screening Congestive heart failure (~02/2020) Deep vein thrombosis (DVT) of distal vein of right lower extremity (~02/29/20) Intellectual disability Nonsustained ventricular tachycardia Tobacco dependence Surgical History Surgical History History of foot surgery History of left inguinal hernia repair Bilateral foot surgery for what sounds like bone spurs. Family History Family History Mother Congestive heart failure Father Cirrhosis of liver Father was an alcoholic. Social History Social History Social History: Surrogate decision maker: Charlene Grider, mother. Code status: Full code. Smoking packs per day: 1 Smoking cigarettes per day: 20.0 Years smoked: 50 Smoking pack-years: 50.00 Smoking status: Current every day smoker Additional smoking assessment comments: Patient began smoking at the age of 9. Alcohol intake: never Substance use: never Additional living arrangements comments: Lives in [place] with his mother and dog, a pug. He has a grown son. Additional occupation/education comments: Disabled due to intellectual disability. Spiritual care concerns: No Mod Sed Physical Exam Physical Exam Pre Procedural Exam: Normal: Appearance, Eyes, Ears, Nose, Neck, Throat, Lungs, Heart Size, Heart Rate, Heart Rhythm, Neuro Exam, Abdomen, Genitalia ( intact pedal pulses), Extremities and Skin and Variation: Airway ( edentulous) Hours since solid foods: 12 Hours since liquid intake: 12 Internal Medicine - PN: Obj Da Vital Signs Vital Signs: Vital Signs - 24 hr 03/02/20 11:58 03/02/20 12:00 03/02/20 14:00 Temperature 98.2 F Pulse Rate 79 103 H 99 Respiratory Rate 18 Blood Pressure 96/72 L Pulse Oximetry 97 03/02/20 16:00 03/02/20 18:00 03/02/20 19:53 Temperature 97.7 F 97.9 F Pulse Rate 95 97 55 L Respiratory Rate 18 20 Blood Pressure 96/76 L 103/71 Pulse Oximetry 98 95 03/02/20 20:00 03/02/20 20:16 03/02/20 22:00 Temperature Pulse Rate 97 102 H 100 Respiratory Rate 20 Blood Pressure Pulse Oximetry 95 03/02/20 23:54 03/03/20 00:00 03/03/20 02:00 Temperature 97.7 F Pulse Rate 102 H 93 98 Respiratory Rate 18 18 Blood Pressure 104/67 Pulse Oximetry 99 99 03/03/20 04:00 03/03/20 06:00 03/03/20 08:00 Temperature 97.6 F 97.8 F Pulse Rate 94 93 94 Respiratory Rate 18 18 Blood Pressure 115/62 135/80 Pulse Oximetry 97 96 03/03/20 08:14 Temperature Pulse Rate 99 Respiratory Rate Blood Pressure Pulse Oximetry Intake/Output Intake/Outp
--- NOTE | 2020-03-03 11:05 | SUR.PHASEII ---
BEGIN PHASE II RECOVERY. RETURNS FROM [facility] W/ DR. LIMON TO SUPERINTENDENT OVERHEAD DISTRIBUTION 3 VIA STRETCHER. AWAKE AND ALERT ON ARRIVAL, DENIES CP OR SOB. R. GROIN PUNCTURE SITE CLOSED W/ ANGIOSEAL AND DRESSED W/ C/D/I GUAZE AND TEGADERM DRESSING. SITE SOFT, NONTENDER, NO BLEEDING OR HEMATOMA NOTED. REVIEWED ALL BEDREST ACTIVITY RESTRICTIONS W/ PT. VOICED UNDERSTANDING OF ALL. VSS. WILL MONITOR.
--- NOTE | 2020-03-03 11:07 | PM.OP ---
Procedure Note - Brief Procedure Note - Brief Date of procedure: 03/03/20 Pre-op diagnosis: Fatigue and lower extremity edema. Cardiomyopathy Post-op diagnosis: other ( nonischemic cardiomyopathy) Procedure performed: conscious sedation Selective coronary angiography Left heart catheterization Anesthesia: local ( with conscious sedation) Surgeon: Kelly Craig MD Findings: No coronary artery disease LV pressure: 98/24 mmHg Rec: OK for discharge from my point of view Add spironolactone 25 mg daily, continue Lasix 20 mg p.o. daily as well as lisinopril and carvedilol. BMP in 1 week Life Vest fitted before discharge Will arrange office FU for medication titration etc.. Patient's DVT is below the knee so the risk embolization is small. Okay to resume Eliquis on Saturday.
--- NOTE | 2020-03-03 11:11 | PM.PROC ---
Procedure Note - Detailed Date of procedure: 03/03/20 Pre-op diagnosis: Fatigue and lower extremity edema. cardiomyopathy, new onset Procedure performed: Conscious sedation Left heart catheterization Selective coronary angiography (no left ventriculogram was done to help reduce dye load secondary to CKD. ) Angiography of the right common femoral artery. Description of procedure: Site: Right femoral artery Catheters: 5 German arterial sheath, 5 German 4 cm right and left Ana catheters, 5 German pigtail catheter Conscious sedation: The patient has no known prior history of adverse affects of conscious sedation. Oropharynx was clear. The patient is deemed a good candidate for conscious sedation. Conscious sedation began at: 1044 Conscious sedation ended at: 11:00 a.m. Total conscious sedation time: 16 minutes Medications: Versed 25 mcg IV push The patient had continuous hemodynamic monitoring, and was also continuously monitored by: Harman Landeros RN The patient tolerated conscious sedation well. Detailed procedure: After informed consent the patient brought to the malthouse laborer and the right femoral area was prepped and draped in the usual fashion. After conscious sedation and local anesthesia the right femoral artery was punctured and cannulated with the arterial sheath. Selective Coronary angiography was performed with the coronary catheters in multiple projections. These were withdrawn. The pigtail catheter was advanced into the central circulation and left ventricle for pressure measurements. No left ventriculogram was done in order to reduce dye load. This was withdrawn. Later angiography the right common femoral was performed and the sheath was in suitable position for a vascular closure device. The arterial sheath was removed and hemostasis was obtained using Angio-Seal.. The patient tolerated the procedure well with no complications. Estimated blood loss was negligible. Anesthesia: local ( With conscious sedation) Surgeon: Kelly Craig MD Estimated blood loss (mL): 10 Drains: No Packing: No Pathology: none sent Complications: No immediate complications Condition: stable Disposition: observation Findings: Pressures: LV pressure 98/24 mm Hg, aortic pressure 104/ mm Hg Left coronary artery: The left main, Left anterior descending and circumflex vessels were widely patent. Right coronary artery: The right coronary artery was dominant and widely patent. Left ventriculogram: Not performed Femoral artery angiogram: Patent common femoral artery Rec: OK for discharge from my point of view Add spironolactone 25 mg daily, continue Lasix 20 mg p.o. daily as well as lisinopril and carvedilol. BMP in 1 week Life Vest fitted before discharge Will arrange office FU for medication titration etc.. Patient's DVT is below the knee so the risk embolization is small. Okay to resume Eliquis on Saturday.
--- NOTE | 2020-03-03 12:05 | SUR.PHASEII ---
REPORT CALLED TO DARIUS Weir RN IN IMU. PT. IS TO RETURN TO IMU 201.1. NO NEW CHANGES IN R. GROIN SITE OR STATUS.
--- NOTE | 2020-03-03 12:35 | SUR.PHASEII ---
END PHASE II RECOVERY. RETURNED TO IMU 201.1 VIA STRETCHER. OBSERVED Ayleen Herrera/ DARIUS DAWKINS IN ROOM. NO NEW CHANGES. PT. VOICES NO C/O.
--- NOTE | 2020-03-03 16:23 | PM.DS ---
DS: Admitting Diagnosis Admitting Diagnosis Admitting Diagnosis: Fatigue and lower extremity edema. DS: Discharge Diagnosis Discharge Diagnosis (1) New onset of congestive heart failure: Code(s): I50.9 - Heart failure, unspecified Status: Acute Assessment and Plan: Combined Systolic and diastolic based on Echo results. Cardiology consulted and appreciate rec. Patient to have cath today; possible discharge from Cardiology standpoint pending cath per note. Echocardiogram showed combined diastolic and systolic dysfunction with an EF 10-15%, no wall motion abnormalities, mild aortic regurgitation and stenosis. Cath today shows no CAD; okay for discharge from Cardiology standpoint On carvedilol already and tolerating it well Cont low dose lisinopril Still having significant peripheral edema but patient has apparent improvement in SOB and edema; will defer diuretics to Cardiology given plan for cath Monitor Patient to be discharged with LifeVest per Cardiology rec Discharge today; f/u with Cardiology (2) Renal failure: Code(s): N19 - Unspecified kidney failure Status: Acute Assessment and Plan: Cr 1.50 today; stable. He may have cardiorenal syndrome. Nephrology consulted and appreciate rec. Renal US unremarkable, he also has proteinuria. Monitor kidney function F/u with Nephrology as well (3) Deep vein thrombosis of distal vein of right lower extremity: Code(s): I82.4Z1 - Acute embolism and thrombosis of unspecified deep veins of right distal lower extremity Status: Acute Assessment and Plan: He had been started on Lovenox 1 milligram/kilogram, but then switched to eliquis; this has been held given Cath today per Cardiology rec. He is saturating above 95 % on room air has no chest pain and he is hemodynamically stable , given that the management is not going to change based on whether or not he has a PE no CTA of chest ordered. Reflux of at least 3 seconds duration is was noted at the left popliteal and peroneal veins on venous Doppler ultrasound indicating chronic venous insufficiency. Cardiology recommends resuming Eliquis on morning of 03/05 given risk for bleeding after cath. Will need f/u with PCP (4) Thickening of wall of gallbladder: Code(s): K82.8 - Other specified diseases of gallbladder Status: Acute Assessment and Plan: [place] to be due to chronic liver disease; he has no symptoms to suggest cholecystitis. (5) Elevated blood pressure reading: Code(s): R03.0 - Elevated blood-pressure reading, without diagnosis of hypertension Status: Acute Assessment and Plan: Blood pressure on the low side now probably due to low EF. 130s sys this morning, however Monitor blood pressures closely while diuresing. Carvedilol and lisinopril also continues Cardiology following patient. (6) Tachycardia: Code(s): R00.0 - Tachycardia, unspecified Status: Acute Assessment and Plan: His tachycardia is under better control. (7) Cirrhosis of liver: Onset Date: ~02/2020 Code(s): K74.60 - Unspecified cirrhosis of liver Status: Acute Assessment and Plan: Etiology of which is not clear at this time. Dr. Grijalva following and appreciate recommendations. Might be related to hepatic congestion given CHF. F/u with GI in 2-3 months per rec (8) Tobacco dependence: Code(s): F17.200 - Nicotine dependence, unspecified, uncomplicated Status: Acute Assessment and Plan: Smoking cessation is imperative and was
--- NOTE | 2020-03-03 18:39 | PC.NURSE ---
Patient was discharged at 1755 with his LifeVest on. All LifeVest education was provided to the patient by Mina Kinsey inventory representative. The patients mother was present for all LifeVest education and discharge education. The patient and his mother expressed understanding of education and repeated the importance of follow up appointments with the stacking machine operator, dry chain puller and GI specialist.
[2020-03-05 10:14] LABS: Ceruloplasmin 45 mg/dL (18-36)
[2020-03-06 10:12] LABS: Mitochondrial (M2) Ab (IgG) <=20.0 U (<=20.0)
== END 2020-03-03 17:55 | disposition home or self-care (01) | DRG 287 ==
LOC: ANHED 13:18 → ANHIMU 15:08
PROVIDERS: Hospitalist; Internal Medicine Cardiovascular Disease; Internal Medicine Gastroenterology; Physician Assistant; Admitting Provider Internal Medicine; Emergency Provider Emergency Medicine; Visit Provider Physician Assistant
PROC: 4A023N7 Measurement of Cardiac Sampling and Pressure, Left Heart, Percutaneous Approach (ICD-10-PCS; CPT 93452; principal; 2020-03-03 10:00)
PROC: 4A023N7 Measurement of Cardiac Sampling and Pressure, Left Heart, Percutaneous Approach (ICD-10-PCS; 2020-03-03 10:00)
DX: I50.41 Acute combined systolic (congestive) and diastolic (congestive) heart failure (principal); I82.4Z1 Acute embolism and thrombosis of unspecified deep veins of right distal lower extremity; I47.2 Ventricular tachycardia; I42.8 Other cardiomyopathies; K74.60 Unspecified cirrhosis of liver; I35.2 Nonrheumatic aortic (valve) stenosis with insufficiency; N18.9 Chronic kidney disease, unspecified; K82.8 Other specified diseases of gallbladder; R03.0 Elevated blood-pressure reading, without diagnosis of hypertension; F17.210 Nicotine dependence, cigarettes, uncomplicated; F79 Unspecified intellectual disabilities; Z82.49 Family history of ischemic heart disease and other diseases of the circulatory system
CPT/HCPCS: 36415; 71045; 71046; 74177; 76705; 76775; 80048; 80053; 80074; 81001; 82104; 82390; 82550; 82728; 83520; 83540; 83550; 83735; 83880; 84100; 84443; 84484; 85025; 85027; 85055; 85610; 85730; 86038; 93005; 93306; 93458; 93970; 94762; 96372; 96374; 96376; 99285; A9270; C1760; C1887; C1894; G0269; G0378; J1644; J1650; J1940; J2250; J3010; J3475; J7040; Q9967

== ENCOUNTER 2020-04-06 09:02 | Outpatient (CLI) | payer MEDICARE, MEDICAID, SELFPAY ==
[2020-04-06 09:51] LABS: Albumin Level 4.6 g/dL (3.5-5.1); Anion Gap 11 mmol/L (8-16); Blood Urea Nitrogen 29 mg/dL (9-20); Calcium 9.8 mg/dL (8.4-10.2); Carbon Dioxide 29 mmol/L (22-30); Chloride 103 mmol/L (98-107); Estimated Glomerular Filt Rate 52; Glucose 106 mg/dL (75-110); Phosphorus 4.1 mg/dL (2.5-4.5); Potassium 4.4 mmol/L (3.4-5.0); Sodium 143 mmol/L (137-145)
== END 2020-04-06 09:03 | disposition home or self-care (01) ==
PROVIDERS: Visit Provider Internal Medicine Nephrology
DX: N18.3 Chronic kidney disease, stage 3 (moderate) (principal); I50.22 Chronic systolic (congestive) heart failure
CPT/HCPCS: 36415; 80069

== ENCOUNTER 2020-05-18 11:33 | Outpatient (CLI) | payer MEDICARE, MEDICAID, SELFPAY ==
[2020-05-18 12:27] LABS: Albumin Level 4.4 g/dL (3.5-5.1); Anion Gap 6 mmol/L (8-16); Blood Urea Nitrogen 17 mg/dL (9-20); Calcium 9.4 mg/dL (8.4-10.2); Carbon Dioxide 31 mmol/L (22-30); Chloride 102 mmol/L (98-107); Estimated Glomerular Filt Rate > 60; Glucose 105 mg/dL (75-110); Phosphorus 3.8 mg/dL (2.5-4.5); Sodium 139 mmol/L (137-145)
[2020-05-18 12:31] LABS: Creatinine Urine 114.9 mg/dL; Total Protein Urine Random 22 mg/dL
[2020-05-18 13:17] LABS: Vitamin D 25 Hydroxy 31.1 ng/mL
[2020-05-18 14:03] LABS: Potassium 4.9 mmol/L (3.4-5.0)
[2020-05-18 14:19] LABS: Parathyroid Intact 59.6 pg/mL (7.5-53.5)
== END 2020-05-18 11:34 | disposition home or self-care (01) ==
PROVIDERS: Visit Provider Internal Medicine Nephrology
DX: N18.30 Chronic kidney disease, stage 3 unspecified (principal)
CPT/HCPCS: 36415; 80069; 82306; 82570; 83970; 84156

== ENCOUNTER 2020-07-23 01:14 | Outpatient (CLI) | payer MEDICARE, MEDICAID, SELFPAY ==
[2020-07-23 18:47] LABS: SARS-CoV-2 RNA PCR Negative
== END 2020-07-23 01:15 | disposition home or self-care (01) ==
LOC: ANHCOVIDDT 01:14
PROVIDERS: PCP Internal Medicine; Visit Provider Internal Medicine Cardiovascular Disease
DX: Z01.812 Encounter for preprocedural laboratory examination (principal); Z20.822 Contact with and (suspected) exposure to COVID-19
CPT/HCPCS: C9803; U0003; U0005

== ENCOUNTER 2020-08-08 10:12 | Outpatient (CLI) | payer MEDICARE, MEDICAID, SELFPAY ==
--- NOTE | 2020-08-08 14:30 | WPDPFTINT ---
PFT Interpretation This is a pulmonary function test with spirometry, plethysmography and diffusing capacity. The test was performed and results interpreted in accordance with the 2019 and 2005 ATS/ERS Task Force guidelines respectively using the Julian/Carlos reference equations. Findings: Spirometry: There is decreased maximal expiratory airflow at all lung volumes with a concave expiratory flow tracing. The inspiratory flow tracing is normal. The FVC is 2.82 L, 71% predicted. The FEV1 is 1.09 L, 38% predicted. The FEV1: FVC ratio is 39%. Plethysmography: The total lung capacity is 6.63 L, 116% predicted. Functional residual capacity is 4.45 L, 125% predicted. The residual volume is 3.80 L, 180% predicted. Plethysmography: The absolute diffusion capacity is 8.7, 50% predicted. The diffusing capacity corrected for alveolar volume is 1.82, 48% predicted. Impression: There is a severe obstructive abnormality. The increase in residual volume is consistent with air trapping from an obstructive abnormality. Hyperinflation is present is demonstrated by the increase in functional residual capacity and is consistent with an obstructive abnormality. The absolute diffusing capacity is moderately decreased and remains moderately decreased when corrected for alveolar volume. There are no prior studies for comparison
== END 2020-08-08 10:13 | disposition home or self-care (01) ==
PROVIDERS: PCP Internal Medicine; Visit Provider Physician Assistant
DX: F17.200 Nicotine dependence, unspecified, uncomplicated (principal); R94.2 Abnormal results of pulmonary function studies
CPT/HCPCS: 94375; 94726; 94729

== ENCOUNTER 2020-08-12 10:38 | Outpatient (CLI) | payer MEDICARE, MEDICAID, SELFPAY ==
--- NOTE | ~2020-08-12 | CT_ITS ---
EXAMINATION: CT lung screening DATE: 08/12/2020 11:58 INDICATION: Tobacco dependence TECHNIQUE: Computed tomography (CT) of the chest was performed without intravenous contrast. The dose -length product was 70.82 mGy-cm. Automated exposure control and iterative reconstruction technique w ere employed. COMPARISON: Chest dated 03/03/2020 FINDINGS: There is emphysema. There is a large left upper lobe mass measuring 7.7 x 8.7 x 6.3 cm, con sistent with bronchogenic carcinoma. Heart size is normal. No significant pleural or pericardial effusion. There are is a calcified nodule in the left lower lobe, consistent with chronic granulomatous disease. There is a 2 mm right upper l obe nodule near the apex. There is postobstructive atelectasis in the left upper lobe. No pneumothora x. There are calcified granulomas in the spleen. IMPRESSION: 1. Large complex left upper lobe mass extending to the hilum, compatible with bronchogenic carcinoma until proven otherwise. Recommend further evaluation with percutaneous biopsy or PET/CT examination. 2: Emphysema. Dr. Caruso discussed with Mya Vanegas, PA's nurse Usama Reynolds at 08/12/2020 16:10 FLOOR GRINDER. Reviewed, dictated and finalized at location A. R GRINDER IMPRESSION: 1. Large complex left upper lobe mass extending to the hilum, compatible with b ronchogenic carcinoma until proven otherwise. Recommend further evaluation with percutaneous biopsy or PET/CT examination. 2: Emphysema. Dr. Caruso discussed with Mya Vanegas, PA's nurse Usama Reynolds at 08/12/2020 16:10 FLOOR GRINDER.
== END 2020-08-12 10:39 | disposition home or self-care (01) ==
PROVIDERS: PCP Physician Assistant; Visit Provider Physician Assistant
DX: Z12.2 Encounter for screening for malignant neoplasm of respiratory organs (principal); Z87.891 Personal history of nicotine dependence; J43.9 Emphysema, unspecified
CPT/HCPCS: 71271

== ENCOUNTER → 2020-08-13 00:29 | Outpatient (CLI) | payer MEDICARE, MEDICAID, SELFPAY ==
[2020-08-13 20:38] LABS: SARS-CoV-2 RNA PCR Negative
== END ==
PROVIDERS: PCP Physician Assistant; Visit Provider Internal Medicine Cardiovascular Disease
DX: Z01.812 Encounter for preprocedural laboratory examination (principal); Z20.822 Contact with and (suspected) exposure to COVID-19
CPT/HCPCS: C9803; U0003; U0005

== ENCOUNTER 2020-08-16 01:48 | Day surgery (SDC) | payer MEDICARE, MEDICAID, SELFPAY ==
[2020-08-15 13:27] VITALS: BMI 20.5
[2020-08-16] VITALS (12 sets, daily range): BP systolic 103–124; BP diastolic 62–94; PULSE 100–149; RESP 15–21; TEMP 36.4–36.7; O2SAT 94–98; BMI 20.1
--- NOTE | ~2020-08-16 | XR_ITS ---
XR chest 1V portable 08/16/2020 14:13 Indication: Pacemaker insertion Procedure: AP portable chest Comparison: Chest x-ray dated 03/03/[address] dated 08/12/2020 Findings: There is a left upper lobe mass, concerning for bronchogenic carcinoma with partial collaps e of the left upper lobe. Interval placement of pacemaker, lead tip in the right ventricle. Heart siz e normal. The lungs are hyperinflated which is consistent with, but not diagnostic of chronic obstruc tive pulmonary disease. No significant effusion or pneumothorax. Impression: 1: Left upper lobe mass, concerning for bronchogenic carcinoma with partial collapse of the left uppe r lobe. Reviewed, dictated and finalized at location B. [facility] CLERK Impression: 1: Left upper lobe mass, concerning for bronchogenic carcinoma with partial col lapse of the left upper lobe.
--- NOTE | ~2020-08-16 | XR_ITS ---
EXAMINATION: XR chest 2V DATE: 08/17/2020 07:27 INDICATION: Pacer placement. TECHNIQUE: Frontal and lateral views of the chest were obtained. COMPARISON: Chest single view 08/16/2020, chest CT 08/12/2020 FINDINGS: The lungs are hyperexpanded with lucencies, consistent with emphysema. There is a left yannick r mass with partial collapse of left lung upper lobe. No pleural effusion or pneumothorax. The heart size is normal. There is a right chest pacer/defibrillator with lead in right ventricle. IMPRESSION: 1. Left hilar mass with partial collapse of left upper lobe, consistent with primary bronchogenic car cinoma. Bronchoscopy is recommended. 2. Emphysema. Reviewed, dictated and finalized at location A. [facility] IMPRESSION: 1. Left hilar mass with partial collapse of left upper lobe, consistent with pr imary bronchogenic carcinoma. Bronchoscopy is recommended. 2. Emphysema.
[2020-08-16 11:19] LABS: Basophils Absolute Auto 0.1 K/mm3 (0.0-0.1); Basophils Percent Auto 0.7 % (0.2-1.2); Eosinophils Absolute Auto 0.1 K/mm3 (0-0.3); Eosinophils Percent Auto 1.7 % (0-4.4); Hematocrit 50.9 % (42.0-52.0); Hemoglobin 17.4 g/dL (14.0-18.0); Immature Granulocyte Absolute 0.02 K/mm3 (0.00-0.031); Immature Granulocyte Percent A 0.2 % (0-0.5); Lymphocytes Absolute Auto 1.58 K/mm3 (0.9-3.2); Mean Corpuscular HGB Conc 34.2 g/dl (32-36); Mean Corpuscular Volume 96.4 fl (80-100); Mean Platelet Volume 11.2 fl (7.4-10.4); Monocytes Absolute Auto 0.8 K/mm3 (0.1-0.6); Neutrophils Absolute Auto 5.7 K/mm3 (1.3-6.7); Neutrophils Percent Auto 68.4 % (45.5-73.1); Platelet Count Result 177 k/mm3 (150-375); Red Blood Count 5.28 M/mm3 (4.6-6.20); White Blood Count 8.3 K/mm3 (4.5-10.0)
[2020-08-16 11:30] LABS: Prothrombin Time 13.4 Seconds (11.1-14.7)
[2020-08-16 11:32] LABS: Anion Gap 8 mmol/L (8-16); Blood Urea Nitrogen 18 mg/dL (9-20); Calcium 10.1 mg/dL (8.4-10.2); Carbon Dioxide 30 mmol/L (22-30); Chloride 104 mmol/L (98-107); Estimated CRCL calculation 39 ml/min; Estimated Glomerular Filt Rate 52; Glucose 100 mg/dL (75-110); Potassium 4.6 mmol/L (3.4-5.0); Sodium 142 mmol/L (137-145)
--- NOTE | 2020-08-16 11:50 | WPDHPUPDATE1 ---
History and Physical Update Update Date/Time: 08/16/20 11:50 History and Physical has been reviewed, including an updated exam of the patient. Since the last visit, the patient was diagnosed as having a left hilar mass by chest x-ray and CT scan which is thought to be cancer. Workup is in progress. I explained to the patient and mother that we could delay the ICD implant further while they are getting an evaluation of this for prognosis but they would like to proceed with ICD implant. In addition, I have planned a left-sided implant but wonder if the patient may need radiation therapy which could impair the function of than ICD as it looks like the ICD would be very close to the mass. In that case we will need to do a right-sided implant, and there may be a decrement in the effectiveness of the ICD. Patient and mother still would like to proceed. He is very tachycardic today, and the mother says he is very anxious. I had him hold his cardiac medications starting last pm, including his carvedilol, as his systolic blood pressure runs in the 90s and I wanted to some ?room? in his BP to provide conscious sedation. Risks, benefits, and alternatives have been discussed and questions answered. Patient agrees to proceed with procedure.
--- NOTE | 2020-08-16 11:59 | WPDMODSED ---
Moderate Sedation Note-Pt Data Patient Data Diagnosis: Nonischemic cardiomyopathy, at risk for sudden cardiac Present Complaint: Same as above Procedure to be performed/Plan: Conscious sedation Venogram Implantation of a single lead ICD Possible DeFib testing Allergies Allergy/AdvReac Type Severity Reaction Status Date / Time Penicillins Allergy Rash Verified 08/15/20 13:18 Home Medications Medication Instructions Recorded Confirmed Type apixaban [Eliquis] 5 mg PO BID #60 tablet 03/03/20 08/15/20 Rx furosemide 20 mg PO DAILY #30 tablet 03/03/20 08/15/20 Rx lisinopril 2.5 mg PO QAM 30 Days #30 tablet 03/03/20 08/15/20 Rx spironolactone 25 mg PO DAILY #30 tablet 03/03/20 08/15/20 Rx carvedilol [Coreg] 6.25 mg PO Q12HR 08/15/20 08/15/20 History sacubitril-valsartan [Entresto] 24 - 26 tablet PO BID 08/15/20 08/15/20 History Current Medications: Active Medications Sodium Chloride (Normal Saline Iv) 500 mls @ 100 mls/hr IV CONT .Q5H ROVERTO Eliquis has been held for 3 days, other meds held since last night Sedation/Anesthesia: No previous sedation/anesthesia problems (including family history). [facility] Past Medical History Medical History (Updated 08/16/20 @ 12:02 by Kelly Craig MD) Cardiomyopathy Chronic kidney disease Cirrhosis of liver (~02/2020) Colon cancer screening Congestive heart failure (~02/2020) Deep vein thrombosis (DVT) of distal vein of right lower extremity (~02/29/20) Intellectual disability Lung mass Nonsustained ventricular tachycardia Tobacco dependence Surgical History Surgical History History of foot surgery History of left inguinal hernia repair Bilateral foot surgery for what sounds like bone spurs. Family History Family History Mother Congestive heart failure Father Cirrhosis of liver Father was an alcoholic. Social History Social History Social History: Surrogate decision maker: Charlene Grider, mother. Code status: Full code. Smoking packs per day: 1 Smoking cigarettes per day: 20.0 Years smoked: 50 Smoking pack-years: 50.00 Smoking status: Current every day smoker Additional smoking assessment comments: Patient began smoking at the age of 9. Alcohol intake: never Substance use: never Additional living arrangements comments: Lives in [place] with his mother and dog, a pug. He has a grown son. Additional occupation/education comments: Disabled due to intellectual disability. Spiritual care concerns: No Mod Sed Physical Exam Physical Exam Pre Procedural Exam: Normal: Appearance (Middle-aged man a slight build, no distress, mentally challenged), Eyes, Ears, Nose, Neck, Airway, Lungs, Heart Size, Heart Rate, Neuro Exam, Abdomen, Extremities and Skin and Variation: Throat (Edentulous) and Heart Rhythm (Tachycardic) Hours since solid foods: 12 Hours since liquid intake: 12 Internal Medicine - PN: Obj Da Vital Signs Vital Signs: Vital Signs - 24 hr 08/16/20 11:00 Temperature 97.6 F Pulse Rate 146 H Respiratory Rate 17 Blood Pressure 124/87 Pulse Oximetry 97 Meds/Results Medications: Active Medications Generic Name Dose Route Start Last Admin Trade Name Freq PRN Reason Stop Dose Admin Sodium Chloride 500 mls @ 100 mls/hr 08/16/20 10:30 Normal Saline Iv IV CONT .Q5H ROVERTO Labs CBC & Chem 7: 08/16/20 10:57 08/16/20 10:57 Labs: Laboratory Results - last 24 hr 08/16/20 08/16/20 08/16/20 10:57 10:57 10:57 WBC 8.3 RBC 5.28 Hgb 17.4 Hct 50.9 MCV 96.4 MCH 33.0 MCHC 34.2 RDW 13.0 Plt Count 177 MPV 11.2 H Immature Gran % (Auto) 0.2 Neut % (Auto) 68.4 Lymph % (Auto) 19.0 [place] % (Auto) 10.0 H Eos % (Auto) 1.7 Baso % (Auto) 0.7
--- NOTE | 2020-08-16 13:37 | PM.OP ---
Procedure Note - Brief Procedure Note - Brief Date of procedure: 08/16/20 Pre-op diagnosis: Non ischemic Cardiomyopathy At risk for sudden cardiac Post-op diagnosis: same Procedure performed: Conscious sedation Venogram Implantation of a single lead Med[employer]onic ICD Description of procedure: uneventful ICD implant Anesthesia: local ( with conscious sedation) Surgeon: Kelly Craig MD Estimated blood loss (mL): 10 Complications: No immediate complications Condition: stable Disposition: observation
--- NOTE | 2020-08-16 13:39 | PM.PROC ---
Procedure Note - Detailed Date of procedure: 08/17/20 Pre-op diagnosis: Non ischemic Cardiomyopathy At risk for sudden cardiac Post-op diagnosis: same Procedure performed: Cconscious sedation Venogram Implantation of a single lead transvenous Medtronic ICD Description of procedure: PROCEDURE PERFORMED: Conscious sedation Venogram Placement of a permanent dual-chamber pacemaker SITE: Right prepectoral area MEDICATIONS GIVEN IN INDUSTRIAL DESIGNER: Vancomycin 1 g IV Normal saline 250 cc bolus for low blood pressure CONSCIOUS SEDATION: Assessment: The patient has no history of anesthesia problems. The patient's oropharynx is clear. The patient was deemed to be a good candidate for conscious sedation. The patient had continuous hemodynamic monitoring during the procedure. Start time: 1244 Completion time: 1334 Total conscious sedation time: 50 minutes Medications: Versed 1 mg, fentanyl 25 mcg IV push Trained observer: Lyla Hwang RN Outcome: The patient tolerated the procedure well with no complications. PROCEDURE: The patient unfortunately was recently found to have a left upper lobe and left hilar mass which is being evaluated. He and his mother did not want to delay the ICD implant pending evaluation and treatment of this mass. With that in mind, I changed my approach from a left-sided to a right-sided implant, thinking that he may need radiation therapy of the left upper lobe which would impair the function of a left-sided ICD. I had asked him to hold his carvedilol and other cardiac medications and I prior to allow enough blood pressure for conscious sedation, and he was noted to be very tachycardic with heart rates 120s-130s, sinus tachycardia. After informed consent , the patient was brought to the labour market economist and the right prepectoral area was prepped and draped in usual fashion . The patient received preop antibiotic with vancomycin and conscious sedation . After the initial Versed 1 mg, the patient's blood pressure decreased to 80 mm Hg ( normal for him is 90 mm Hg) and he was given 250 cc of saline with good results. The right prepectoral area was anesthetized with lidocaine . A venogram was performed showing the course of the right subclavian vein,which was patent. Next a skin incision was made and carried down to the prepectoral fascia. Hemostasis was obtained using electrocautery . The pacer pocket was formed. The subclavian vein was easily accessed with the micropuncture technique, and a J-tip guide wire was passed into the inferior vena cava under fluoroscopic guidance . The needle was withdrawn . The wire was drawn into the pacing pocket. A 9 [place] safety sheath was passed over the wire, the wire withdrawn, and the right ventricular lead was passed into the inferior vena cava under fluoroscopic guidance . The lead was then prolapsed through the tricuspid valve and advanced into the right ventricular apex. When suitable sensing and pacing thresholds were obtained, it was screwed into place. No extra cardiac stimulation was obtained using 10 volts. The sheath was withdrawn. The lead was secured to the prepectoral fascia using 2-0 silk over it's sleeve. The pocket was cleansed with antibiotic containing solution . The pulse generator was introduced into the operative field, and both lead was secured into the generator. A gentle tug showed the lead was securely fastened. The device was introduced into the pocket. No Defib threshold testing was done per guidelines; he has such poor LV function I was concerned that he may not tolerate DFT well. The subcutaneous tissues were closed in a double layer fashion with interrupted sutures, using 2-0 Vicryl suture , and the skin was closed in a continuous fashion using 4-0 Vicryl suture in a continuous fashion. The area was cleansed, and an Aquacel dressing was applied . The patient tolerated the procedure well with no complications. PACEMAKER INFORMATION: P
--- NOTE | 2020-08-16 13:52 | ECG_ITS ---
Measurements Intervals [place] Rate: 129 P: 83 NM: 158 QRS: -39 QRSD: 94 T: 70 QT: 289 QTc: 425 Interpretive Statements SINUS TACHYCARDIA LEFT AXIS DEVIATION INCOMPLETE RIGHT BUNDLE BRANCH BLOCK BORDERLINE R WAVE PROGRESSION, ANTERIOR LEADS BASELINE ARTIFACT- I, III ABNORMAL ECG Electronically Signed On 08-16-2020 14:34:53 INTERVENTIONAL RADIOLOGY TECH by Zurdo Louis D.O.
--- NOTE | 2020-08-16 15:37 | ADMGEN ---
This patient, Francis Perez, was admitted to [facility]. Patient/family oriented to hospital policies and general routines including ID bracelet, bed and alarms, visiting hours, pain management, procedures, bathroom and other care routines, personal items, smoking policy, room service/diet, and visiting hours. Information on how to activate the Rapid Response Team has been discussed. Patient/Family are encouraged to report perceived risks to care and to ask questions if they do not understand what they are told or what they should do.
--- NOTE | 2020-08-16 18:34 | PC.NURSE ---
Report given to Charlotte RN in IMU patient will transfer to IMU room 209 at shift change.
--- NOTE | 2020-08-16 19:22 | PC.NURSE ---
Patient, mother and belongings all transferred to IMU room 209.
[2020-08-16] MEDS: carvediloL 6.25 MG TABLET PO (21:32)
[2020-08-16] MEDS: SACUBITRIL/VALSARTAN 24-26 MG TABLET 1 TAB PO (21:32)
--- NOTE | 2020-08-16 21:51 | PC.NURSE ---
[address]
[2020-08-17] VITALS (7 sets, daily range): BP systolic 100–104; BP diastolic 71–76; PULSE 84–110; RESP 16–20; TEMP 36.3–36.6; O2SAT 92–97
[2020-08-17] MEDS: lisinopriL 2.5 MG TABLET PO (08:24)
[2020-08-17] MEDS: SACUBITRIL/VALSARTAN 24-26 MG TABLET 1 TAB PO (08:24)
[2020-08-17] MEDS: carvediloL 6.25 MG TABLET PO (08:24)
[2020-08-17] MEDS: SPIRONOLACTONE 25 MG TABLET PO (08:24)
[2020-08-17] MEDS: FUROSEMIDE 20 MG TABLET PO (08:25)
--- NOTE | 2020-08-17 09:50 | PM.DS ---
DS: Admitting Diagnosis Admitting Diagnosis Admitting Diagnosis: Nonischemic cardiomyopathy, at risk for sudden cardiac DS: Discharge Diagnosis Discharge Diagnosis (1) ICD (implantable cardioverter-defibrillator) in place: Code(s): Z95.810 - Presence of automatic (implantable) cardiac defibrillator Status: Acute DS: Summary Hospital Course Hospital Course: Mr. Perez has a nonischemic cardiomyopathy followed by Dr. Rosen. Despite several months of optimal medical therapy his ejection fraction was still for 10-15%. He is at risk of sudden cardiac and was admitted for elective implantation of a ICD. On arrival the patient's mother (he has a developmental delay) informed me that he was found to have a lung mass on the left side recently by chest x-ray and CT scan which was thought to be a cancer although he has not had a biopsy yet. We had a discussion as to perhaps delaying ICD implant until after more was known about the patient's prognosis but he and his mother wanted to proceed with the ICD implant. With that in mind, thinking that he may need high-dose radiation therapy to the left chest, I elected to implant the ICD on the right side. The patient had uneventful implantation of a right-sided single lead Medtronic ICD yesterday. No Defib threshold testing was done per guidelines; he has such poor LV function I was concerned that he may not tolerate DFT well. Follow-up chest x-rays and interrogation showed normal function, normal position and no pneumothorax. He does have a large mass of the left hilum and left upper lobe. Of note, I had held the patient's cardiac medications the night prior to admission as is normal blood pressure is about 90 mm Hg, in order that I could safely provide conscious sedation with an adequate blood pressure margin. He was very tachycardic with heart rates in the 120-130 range without the carvedilol. This morning, back on his usual meds, his pulse is down to his baseline, 98 beats per minute and blood pressure is running 100/70's. He was given instructions regarding incision care. He was asked to resume his Eliquis on the . He has a follow-up visit in our office in 1 week and will continue to follow-up with Dr. Rosen and evaluation of the lung mass. Time spent discussing smoking cessation with patient: 3 to 10 minutes Status at Discharge Functional status at discharge: independent ambulation Overall status at discharge: patient is back to baseline Time Spent with Patient Time attestation: Total time spent providing and/or coordinating discharge services: 35 minutes Time spent: Greater than 30 minutes Exam Const: General: comfortable and no acute distress HENMT: Mouth: Yes moist mucous membranes Neck: Neck: supple Resp: Auscultation: diminished lung sounds Cardio: Rate: regular rate Rhythm: regular rhythm Heart sounds: no murmurs GI: Inspection: non-distended GI Palp: Yes Soft to palpation and No Firmness to palpation present (GI) Skin: General skin exam: normal color Other: ICD incision covered with Echo Aquacel bandage, no erythema, ecchymosis or bleeding. Neuro: Motor exam (neuro): Normal motor muscle tone present throughout Extrem: General: no pedal edema Psych: Mental Status: mental status grossly normal (Does have a developmental delay) Affect: normal affect Thought content: Yes Normal thought content present DS: Data Data Completed and Pending Labs on day of discharge: Labs from last 24 hours 08/16/20 08/16/20 08/16/20 10:57 10:57 10:57 WBC 8.3 RBC 5.28 Hgb 17.4 Hct 50.9 MCV 96.4 MCH 33.0 MCHC 34.2 RDW 13.0 Plt Count 177 MPV 11.2 H Immature Gran % (Auto) 0.2 Neut % (Auto) 68.4 Lymph % (Auto) 19.0 [place] % (Auto) 10.0 H Eos % (Auto) 1.7 Baso % (Auto) 0.7 Lymph #
== END 2020-08-17 10:56 | disposition home or self-care (01) ==
LOC: ANHCATHLAB 10:23 → ANHCPC 15:22 → ANHIMU 08-17 04:53
PROVIDERS: PCP Physician Assistant; Visit Provider Internal Medicine Cardiovascular Disease
PROC: 0JH608Z Insertion of Defibrillator Generator into Chest Subcutaneous Tissue and Fascia, Open Approach (ICD-10-PCS; CPT 33249; principal; 2020-08-16 12:00)
DX: I42.8 Other cardiomyopathies (principal); I50.22 Chronic systolic (congestive) heart failure; R91.8 Other nonspecific abnormal finding of lung field; N18.9 Chronic kidney disease, unspecified; K74.60 Unspecified cirrhosis of liver; Z86.718 Personal history of other venous thrombosis and embolism; F17.210 Nicotine dependence, cigarettes, uncomplicated; Z79.01 Long term (current) use of anticoagulants
CPT/HCPCS: 33249; 36415; 71045; 71046; 80048; 85025; 85610; 93005; A4565; A9270; C1722; C1777; J2250; J3010; J3370; J7040

== ENCOUNTER 2020-10-18 09:32 | Emergency (ER) | payer OTHER, MEDICARE, MEDICAID, SELFPAY ==
--- NOTE | ~2020-10-18 | XR_ITS ---
EXAMINATION: XR chest 1V portable DATE: 10/18/2020 10:14 INDICATION: Seizure. TECHNIQUE: A single frontal view of the chest was obtained. COMPARISON: Chest 2 views 08/17/2020, chest CT 08/12/2020 FINDINGS: There are lucencies in the lungs, consistent with emphysema. There is a left hilar mass. No pleural effusion or pneumothorax. The heart size is normal. There is a right chest pacer/defibrillat or with lead in right ventricle. IMPRESSION: 1. Left hilar mass, consistent with primary bronchogenic carcinoma. 2. Emphysema. Reviewed, dictated and finalized at location A.
--- NOTE | ~2020-10-18 | CT_ITS ---
EXAMINATION: CT brain wo con INDICATION: Seizure, history of lung cancer COMPARISON: None TECHNIQUE: Standard unenhanced head CT. The dose-length product (DLP) was 605.33 mGy-cm. The mA was a djusted according to patient size. Iterative reconstruction technique was employed. FINDINGS: There is no intracranial hemorrhage or acute infarction. There is a 2.4 x 2.2 cm calcified mass of the right basal ganglia with calcification. There is a 2.7 x 2.1 cm mass of the right tempora l lobe. There also appears to be a 2.3 cm mass in the right cerebellum. There is mass effect on right lateral ventricle. The denis-white matter differentiation is normal. The basal cisterns are patent. T he orbits are normal. The paranasal sinuses, mastoids and calvarium are normal. IMPRESSION: 1. Intracranial masses as described above, consistent with metastatic disease. These findings were di scussed with Dr. Leandro Rice MD in the Emergency Department at 1023 hours on 10/18/2020. Reviewed, dictated and finalized at location B. IMPRESSION: 1. Intracranial masses as described above, consistent with metastatic disease. These findings were discussed with Dr. Leandro Rice MD in the Emergency Depar tment at 1023 hours on 10/18/2020.
[2020-10-18 09:38] VITALS: BP 104/78; PULSE 83; RESP 15; TEMP 35.8; O2SAT 96
[2020-10-18 09:50] VITALS: O2SAT 96
--- NOTE | 2020-10-18 09:51 | ECG_ITS ---
Measurements Intervals [place] Rate: 73 P: 69 MD: 182 QRS: -33 QRSD: 92 T: -60 QT: 350 QTc: 387 Interpretive Statements SINUS RHYTHM POSSIBLE LEFT ATRIAL ENLARGEMENT LEFT AXIS DEVIATION INCOMPLETE RIGHT BUNDLE BRANCH BLOCK DELAYED PRECORDIAL R/S TRANSITION ST-T WAVE ABNORMALITY IN INF/LAT LEADS- CONSIDER ISCHEMIA BASELINE ARTIFACT- I, III, AVR, AVL, AVF, V1-V2 ABNORMAL ECG Electronically Signed On 10-18-2020 9:58:08 CDT by Zurdo Louis D.O.
--- NOTE | 2020-10-18 10:01 | ED.GENADULT ---
HPI - General Adult General Chief complaint: Seizure Stated complaint: seizure Time Seen by Provider: 10/18/20 09:39 Source: patient, EMS and RN notes reviewed Mode of arrival: EMS Limitations: no limitations History of Present Illness HPI narrative: Patient is 59 years old white male brought to the emergency room by ambulance because of seizure-like activity, unresponsiveness, incoherent, now back to normal. The above symptoms started while patient took his car to change oil 30 minutes ago. Patient denies a history of seizure. Currently patient is asymptomatic and would like to have some coffee. History of lung cancer with metastasis to include brain metastasis. Patient denies any fever, chills, nausea, vomiting, tongue bite or urine incontinence. Related Data Home Medications Medication Instructions Recorded Confirmed Entresto 24 - 26 tablet PO BID 08/15/20 08/15/20 carvedilol [Coreg] 6.25 mg PO Q12HR 08/15/20 08/15/20 Allergies Allergy/AdvReac Type Severity Reaction Status Date / Time Penicillins Allergy Rash Verified 08/15/20 13:18 Review of Systems Review of Systems: Narrative: CONSTITUTIONAL: Denies fever, chills, or sweats. EYES: Denies visual changes, redness, or discharge. ENT: Denies rhinorrhea, congestion, sore throat, or otalgia. CARDIOVASCULAR: Denies chest pain, palpitations, or edema. RESPIRATORY: Denies cough or dyspnea. GASTROINTESTINAL: Denies abdominal pain, nausea, vomiting, or diarrhea. GENITOURINARY: Denies dysuria or hematuria. SKIN: Denies rash or itching. MUSCULOSKELETAL: Denies back pain, joint pain, or myalgia. NEUROLOGIC: Denies headache, numbness, or weakness. PSYCHIATRIC: Denies anxiety or depression. [facility] Past Medical History Medical History Cardiomyopathy Chronic kidney disease Cirrhosis of liver (~02/2020) Colon cancer screening Congestive heart failure (~02/2020) Deep vein thrombosis (DVT) of distal vein of right lower extremity (~02/29/20) ICD (implantable cardioverter-defibrillator) in place Intellectual disability Lung mass Nonsustained ventricular tachycardia Tobacco dependence Surgical History Surgical History History of foot surgery History of left inguinal hernia repair Bilateral foot surgery for what sounds like bone spurs. Family History Family History Mother Congestive heart failure Father Cirrhosis of liver Father was an alcoholic. Social History Social History Social History: Surrogate decision maker: Charlene Grider, mother. Code status: Full code. Smoking packs per day: 1 Smoking cigarettes per day: 20.0 Years smoked: 50 Smoking pack-years: 50.00 Smoking status: Former smoker Tobacco type: cigarettes Second hand tobacco smoke exposure: Yes Additional smoking assessment comments: Patient began smoking at the age of 9. Alcohol intake: never Substance use: never Substance use type: does not use Additional living arrangements comments: Lives in [place] with his mother and dog, a pug. He has a grown son. Additional occupation/education comments: Disabled due to intellectual disability. Gender identity (if verbalized by the patient): Male Spiritual care concerns: No Exam Narrative: Exam Narrative: General appearance: Well-developed, well-nourished, patient's mother at the bedside Skin: Normal color Head: Normocephalic, nontraumatic Eyes: Clear conjunctiva ENT: Oropharynx normal, ears normal, nose normal Neck: Supple, nontender Chest and respiratory: Airway patent, no respiratory distress, no accessory muscle use Heart: Regular rate/rhythm Abdomen: Soft, nontender, no organomegaly, quiet bowel sounds Vascular: Normal peripheral pulses, normal capillary refill. Musculoskeletal:
[2020-10-18 10:29] VITALS: PULSE 82
--- NOTE | 2020-10-18 10:33 | PC.NURSE ---
pt and family refuses lab draw. md aware. will medicate for seizures iv per md request
[2020-10-18 10:34] VITALS: BP 122/83; PULSE 86; RESP 14; O2SAT 96
[2020-10-18] MEDS: diazePAM INJ (*CRX) 10 MG/2 ML SYRINGE 5 MG IV PUSH (10:42)
[2020-10-18] MEDS: levETIRAcetam 1000MG/NACL100ML 1,000 MG/100 ML BAG 400 MG IVPB (10:42)
--- NOTE | 2020-10-18 11:36 | PC.NURSE ---
hospice nurse at bedside speaking with family. pt more arousable after iv diazepam. no seizure activity during ed stay
[2020-10-18 11:37] VITALS: BP 94/64; PULSE 74; RESP 14; O2SAT 97
== END 2020-10-18 11:45 | disposition home or self-care (01) ==
PROVIDERS: Emergency Provider Emergency Medicine; PCP Physician Assistant
DX: R56.9 Unspecified convulsions (principal); C79.31 Secondary malignant neoplasm of brain; N18.9 Chronic kidney disease, unspecified; Z87.891 Personal history of nicotine dependence; K74.60 Unspecified cirrhosis of liver; I50.9 Heart failure, unspecified; Z95.810 Presence of automatic (implantable) cardiac defibrillator
CPT/HCPCS: 70450; 71045; 93005; 96365; 96375; 99284; J1953; J3360